=== PATIENT | male | born 1955 | race Caucasian/White ===

== ENCOUNTER 2020-11-14 09:11 | Outpatient (CLI) | payer OTHER, MEDICARE, SELFPAY ==
--- NOTE | ~2020-11-14 | US_ITS ---
aorta preventative scrn DATE: 11/14/2020 11:03 INDICATION: Obesity, hypercholesterolemia, hypertension. TECHNIQUE: Real-time and color flow imaging and Doppler analysis of the abdominal aorta. COMPARISON: None FINDINGS: There is no evidence of abdominal aortic aneurysm. Right common iliac artery measures 1.2 c m proximally. Left proximal common iliac artery measures 1.3 cm. IMPRESSION: No evidence of abdominal aortic aneurysm Reviewed, dictated and finalized at [facility]. Reviewed, dictated and finalized at [facility]. 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
== END 2020-11-14 09:12 | disposition home or self-care (01) ==
LOC: ANHIMG 09:18
PROVIDERS: PCP Internal Medicine; Visit Provider Internal Medicine
DX: Z13.6 Encounter for screening for cardiovascular disorders (principal)
CPT/HCPCS: 76706

== ENCOUNTER 2022-01-10 07:30 | Outpatient (CLI) | payer MEDICARE, OTHER, SELFPAY ==
--- NOTE | 2022-01-10 07:43 | ECHO_ITS ---
Patient Info Name: Isacc Belle Age: 66 years : 1955 Gender: Male Ht: 68 in Wt: 266 lbs BSA: 2.46 m2 HR: 78 bpm Technical Quality: Fair Exam Date: 01/10/2022 7:58 AM Exam Location: [facility] Patient Status: Outpatient Admit Date: 01/10/2022 Staff Ordering Physician: Dannie Zelaya MD Drag Sawyer: Betzaida Ash RDCS Attending Provider: Dannie Zelaya MD Exam Type: CA echo doppler color flow Study Info Indications I10 - Essential (primary) hypertension Complete two-dimensional, color flow and Doppler transthoracic echocardiogram is performed. Summary 1. Complete two-dimensional, color flow and Doppler transthoracic echocardiogram is performed. 2. Left ventricular chamber dimension is normal. 3. Left ventricular systolic function is normal, estimated at 60-65%. 4. There is mildly increased left ventricular wall thickness. 5. The left ventricular diastolic function is grade II diastolic dysfunction. 6. E/e' 7 is not elevated. 7. Left atrial chamber dimension is mildly enlarged. 8. There is trace tricuspid valve regurgitation. 9. No pulmonary hypertension, estimated pulmonary arterial systolic pressure is 31 mmHg. Left Ventricle E/e' 7 is not elevated. Left ventricular chamber dimension is normal. Left ventricular systolic function is normal, estimated at 60-65%. There is mildly increased left ventricular wall thickness. The left ventricular diastolic function is grade II diastolic dysfunction. Right Ventricle Right ventricular chamber dimension is normal. Right ventricular systolic function is normal. Left Atria Left atrial chamber dimension is mildly enlarged. Right Atria Right atrial chamber dimension is normal. Aortic Valve The aortic valve is trileaflet. There is no aortic valve stenosis. There is no aortic valve regurgitation. Pulmonic Valve There is no pulmonic regurgitation. Mitral Valve There is no mitral valve stenosis. There is no mitral valve regurgitation. Tricuspid Valve There is trace tricuspid valve regurgitation. No pulmonary hypertension, estimated pulmonary arterial systolic pressure is 31 mmHg. Pericardium/Pleural There is no pericardial effusion. Inferior Vena Cava Normal inferior vena cava with >50% collapse upon inspiration consistent with normal right atrial pressure, 5 mmHg. Aorta The aortic root size at the sinus of Valsalva is normal. Left Ventricular Outflow Tract Name Value Normal LVOT 2D LVOT Diameter 2.1 cm LVOT Doppler LVOT Peak Gradient 5 mmHg LVOT Mean Gradient 3 mmHg LVOT VTI 27 cm LVOT VTI/AV VTI Ratio 0.9 LVOT Stroke Volume 90 ml LVOT CO 5.7 l/min LVOT CI 2.3 l/min/m2 Pulmonic Valve Name Value Normal RVOT Doppler ---------
--- NOTE | 2022-01-10 07:44 | ECG_ITS ---
Measurements Intervals [place] Rate: 70 P: 51 ND: 180 QRS: 15 QRSD: 100 T: 11 QT: 376 QTc: 408 Interpretive Statements SINUS RHYTHM MINIMAL VOLTAGE CRITERIA FOR LVH, CONSIDER NORMAL VARIANT [MEETS CRITERIA IN ONE OF: R(aVL), S(V1), R(V5), R(V5/V6)+S(V1)] NO PREVIOUS ECG AVAILABLE FOR COMPARISON Electronically Signed On 01-10-2022 17:17:05 CDT by Osvaldo Workman M.D.
== END 2022-01-10 07:31 | disposition home or self-care (01) ==
LOC: ANHCARD 07:31
PROVIDERS: PCP Internal Medicine; Visit Provider Internal Medicine
DX: I10 Essential (primary) hypertension (principal); R06.00 Dyspnea, unspecified
CPT/HCPCS: 93005; 93306

== ENCOUNTER 2023-02-07 07:50 | Outpatient (CLI) | payer MEDICARE, SELFPAY | END 2023-02-07 07:51 | disposition home or self-care (01) | LOC: ANHAUDIO 07:51 | PROVIDERS: PCP Internal Medicine; Visit Provider Otolaryngology | DX: H90.3 Sensorineural hearing loss, bilateral (principal) | CPT/HCPCS: 92557; 92567 ==

== ENCOUNTER 2023-07-10 09:44 | Emergency (ER) | payer MEDICARE, SELFPAY ==
--- NOTE | 2023-07-10 09:49 | ED.SKABFB ---
HPI - Skin/Abscess/Foreign Bdy General Chief complaint: Skin/Abscess/Foreign Body Stated complaint: Rash on arms/legs Time Seen by Provider: 07/10/23 09:55 Source: patient, family, RN notes reviewed and old records reviewed Mode of arrival: ambulatory Limitations: no limitations History of Present Illness HPI narrative: 68 year old male presents to [facility] care with small raised red lesions that are itchy on his bilateral lower legs and a few on bilateral arms, questions if insect bites.. Patient recently returned from [facility] in the [facility] from vacation and was on the beach noted rash on his way home from vacation, no new areas since returning home. Patient reports that he has been applying hydrocortisone ointment and some Benadryl cream without relief or resolution has increased itching. Patient states that he has no rash area on trunk neck or head. MD complaint: rash Onset (ago): day(s) (noted Sunday on plane ride home) Location: LUE, RUE (scant areas on forearms), LLE and RLE Quality: pruritic Treatments prior to arrival: OTC topical medication (Benadryl topical) and corticosteroid (cream/ointment) Related Data Home Medications Medication Instructions Recorded Confirmed ascorbate calcium (vitamin C) 500 500 mg PO BID 11/03/19 07/10/23 mg tablet aspirin 81 mg tablet,delayed 81 mg PO DAILY 11/03/19 07/10/23 release (Adult Low Dose Aspirin) beta carotene 30 mg capsule 30 mg PO DAILY 11/03/19 07/10/23 (Lumitene) fvhyunwf-qxhdfziq-lazdh acid 400 1 tablet PO DAILY 11/03/19 07/10/23 mcg-vit K 20 mcg-lycop 300 mcg tablet (One-A-Day Men's Multivitamin) omega-3 fatty acids 1,000 mg 1,000 mg PO DAILY 11/03/19 07/10/23 capsule (Fish Oil Concentrate) vitamin E 200 unit capsule 200 unit PO DAILY 11/03/19 07/10/23 acetaminophen 650 mg 650 mg PO Q12H 06/07/23 07/10/23 tablet,extended release (Tylenol Arthritis Pain) naproxen sodium 220 mg tablet 220 mg PO BID 06/07/23 07/10/23 Allergies Allergy/AdvReac Type Severity Reaction Status Date / Time No Known Allergies Allergy Verified 07/10/23 09:53 Review of Systems Review of Systems: CONSTITUTIONAL: Denies fever, chills, or sweats. CARDIOVASCULAR: Denies chest pain, palpitations, or edema. RESPIRATORY: Denies cough or dyspnea. SKIN: Reports red raised lesions to bilateral lower legs and some areas on forearms that are itchy MUSCULOSKELETAL: Denies joint pain or myalgia. NEUROLOGIC: Denies headache, numbness, or weakness. All systems reviewed & are unremarkable except as noted in HPI and below PMFSH Past Medical History Medical History (Updated 07/10/23 @ 10:14 by Birdie Bales NP) Dyslipidemia Essential hypertension NICOLE (obstructive sleep apnea) Osteoarthritis Surgical History Surgical History (Updated 07/10/23 @ 10:08 by Birdie Bales NP) History of left knee replacement History of tonsillectomy Family History Family History Father Hypertension Family history of Parkinson's disease Family history of dementia Other Cerebrovascular accident Social History Social History Years smoked: 2 Smoking status: Former smoker Tobacco type: cigarettes Second hand tobacco smoke exposure: Yes Smoking end date: 10/15/70 Alcohol intake: current Alcohol use details: rarely - every other month Substance use: never Lack of Transportation: No Lack of Food: Never True Current Housing: I Have Housing Concerned About Future Housing: No Difficulty Paying Gas/Electric Bills: No Difficulty Paying for Meds: No Currently Unemployed: No Education: High School Diploma/GED Difficulty w/ Childcare or Family Care: No Living arrangements: with family Occupation/Education: retired Gender identity (if verbalized by the patient): Male Comments At time of signature, agree with nursing past
[2023-07-10 09:50] VITALS: BP 142/80; PULSE 65; RESP 16; TEMP 36.6; O2SAT 100
== END 2023-07-10 10:18 | disposition home or self-care (01) ==
PROVIDERS: Emergency Provider Registered Nurse; PCP Nurse Practitioner Family
DX: L30.9 Dermatitis, unspecified (principal); Z87.891 Personal history of nicotine dependence; E78.5 Hyperlipidemia, unspecified; I10 Essential (primary) hypertension; M19.90 Unspecified osteoarthritis, unspecified site; Z96.652 Presence of left artificial knee joint
CPT/HCPCS: 99213; G0463

== ENCOUNTER 2023-07-23 08:32 | Outpatient (CLI) | payer MEDICARE, SELFPAY ==
--- NOTE | 2023-07-23 08:56 | ECHO_ITS ---
Patient Info Name: Isacc Belle Age: 68 years : 1955 Gender: Male Ht: 68 in Wt: 261 lbs BSA: 2.44 m2 HR: 68 bpm BP: 143 / 78 mmHg Technical Quality: Fair Exam Date: 07/23/2023 9:07 AM Exam Location: [facility] Patient Status: Outpatient Admit Date: 07/23/2023 Staff Ordering Physician: Sudha Drew APRN Certified Social Workers In Health Care: Betzaida Ash RDCS Attending Provider: Sudha Drew APRN Referring Physician: Viki FABIAN; Exam Type: CA echo dop color flow w con Study Info Indications I51.89 - Other ill-defined heart diseases Complete two-dimensional, color flow and Doppler transthoracic echocardiogram is performed with contrast to opacify the left ventricle and to improve the deliniation of the left ventricle endocardial borders. Contrast/Agitated Saline Contrast/Ag. Saline: Definity Amount: 5.00 ml Administered By: Betzaida Ash RDCS New IV Access: Antecubital Space and Left Site Condition: No extravasation, Site dressing applied and IV removed Summary 1. Definity contrast administered improved wall motion interpretation. 2. Left ventricular chamber dimension is normal. 3. Left ventricular systolic function is normal, estimated at 60-65%. 4. The left ventricular diastolic function is grade II diastolic dysfunction. 5. E/e' 7 is not elevated. Left Ventricle E/e' 7 is not elevated. Definity contrast administered improved wall motion interpretation. Left ventricular chamber dimension is normal. Left ventricular systolic function is normal, estimated at 60-65%. The left ventricular diastolic function is grade II diastolic dysfunction. Right Ventricle Right ventricular chamber dimension is normal. Right ventricular systolic function is normal. Left Atria Left atrial chamber dimension is normal. Right Atria Right atrial chamber dimension is normal. Aortic Valve The aortic valve is trileaflet. There is no aortic valve stenosis. There is no aortic valve regurgitation. Pulmonic Valve There is no pulmonic regurgitation. Mitral Valve There is no mitral valve stenosis. There is no mitral valve regurgitation. Tricuspid Valve There is no tricuspid valve regurgitation. Pericardium/Pleural There is no pericardial effusion. Inferior Vena Cava Normal inferior vena cava with >50% collapse upon inspiration consistent with normal right atrial pressure, 5 mmHg. Aorta The aortic root size at the sinus of Valsalva is normal. Left Ventricular Outflow Tract Name Value Normal LVOT 2D LVOT Diameter 2.02 cm LVOT Doppler LVOT Peak Gradient 5 mmHg LVOT Mean Gradient 3 mmHg LVOT VTI 28.17 cm LVOT VTI/AV VTI Ratio 1.05 LVOT Stroke Volume 89.96 ml LVOT CO 5.21 l/min LVOT CI 2.14 L/min/m2 Pulmonic Valve Name Value Normal RVOT Doppler
[2023-07-23] MEDS: PERFLUTREN LIPID MICROSPHERES 1.5 ML VIAL DILUTED TO 10 ML TOTAL VOLUME IV PUSH (09:41)
--- NOTE | 2023-07-23 10:22 | IVDEFINITY ---
Prior to administration of IV Definity the patient was educated on the risks and benefits of the imaging enhancing agent including potential adverse side effects. The patient verbalized understanding. Allergies were verified. No exclusion criteria were identified and at least one of the following inclusion criteria were met: 1) physician request, 2) patient technically difficult to image (per the [place] [employer] Echocardi[employer] guidelines of two or more segments not discernable within the apical view), or 3) questionable left ventricular function. ?
== END 2023-07-23 08:33 | disposition home or self-care (01) ==
LOC: ANHCARD 08:33
PROVIDERS: PCP Nurse Practitioner Family; Visit Provider Nurse Practitioner Family
DX: I51.89 Other ill-defined heart diseases (principal)
CPT/HCPCS: C8929; Q9957

== ENCOUNTER 2024-02-11 08:08 | Outpatient (CLI) | payer MEDICARE, SELFPAY ==
--- NOTE | ~2024-02-11 | XR_ITS ---
EXAMINATION: XR barium swallow DATE: 02/11/2024 08:48 INDICATION: Cough, unspecified. TECHNIQUE: The patient drank thick barium, gas-producing crystals, and thin barium. Fluoroscopy of th e hypopharynx and esophagus was performed. Fluoroscopy exposure time was 0.5 minutes. The total numbe r of images was 265. The dose-area product was 2.821 Gy-cm^2. COMPARISON: None. FINDINGS: There is no mass or stricture of the esophagus. Esophageal motility is normal. There is no hiatal hernia. There was no gastroesophageal reflux with provocative maneuvers. IMPRESSION: 1. Normal esophagram. Reviewed, dictated and finalized at [facility]. IMPRESSION: 1. Normal esophagram.
== END 2024-02-11 08:09 | disposition home or self-care (01) ==
PROVIDERS: PCP Nurse Practitioner Family; Visit Provider Nurse Practitioner Family
DX: R05.9 Cough, unspecified (principal)
CPT/HCPCS: 74220

== ENCOUNTER 2024-04-12 13:05 | Emergency (ER) | payer MEDICARE, SELFPAY ==
--- NOTE | ~2024-04-12 | XR_ITS ---
EXAMINATION: XR hand RT min 3V DATE: 04/12/2024 13:28 INDICATION: Laceration to the right hand TECHNIQUE: Posteroanterior, oblique and lateral views of the right hand were obtained. COMPARISON: None. FINDINGS: Bone alignment is normal. No fracture. Polyarticular osteoarthritis, moderate severity at the first c arpometacarpal, third metacarpophalangeal and second and third distal interphalangeal joints and mild at the distal radioulnar, triscaphe and many of the remaining metacarpophalangeal and interphalangea l joints. Laceration along the radial aspect of the second proximal phalanx. No evident radiopaque fo reign bodies. IMPRESSION: 1. No acute osseous abnormality or radiopaque foreign bodies. 2. Mild to moderate polyarticular osteoarthritis. Reviewed, dictated and finalized at location [facility].
[2024-04-12 13:15] VITALS: BP 140/73; PULSE 81; RESP 16; TEMP 37.2; O2SAT 98
[2024-04-12] MEDS: TETANUS,DIPHTHERIA,AC PERTUSSIS ADULT (0.5 ML) BOOSTRIX IM (13:29)
--- NOTE | 2024-04-12 14:12 | ED.WOUNDLAC ---
HPI - Wound/Laceration General Chief Complaint: Wound/Laceration Stated Complaint: R HAND LACERATION Time Seen by Provider: 04/12/24 13:16 Source: patient, family () and RN notes reviewed Mode of arrival: ambulatory Limitations: no limitations History of Present Illness HPI narrative: Patient and present today complaining of a large laceration to the palmar aspect of the right hand at the base of the thumb. Patient was disassembling a swing set when something fell and pinched his hand causing a large laceration. Injury occurred just prior to arrival. Patient denies numbness or tingling. He is not up-to-date on his tetanus vaccine. Related Data Home Medications Medication Instructions Recorded Confirmed ascorbate calcium (vitamin C) 500 500 mg PO BID 11/03/19 04/12/24 mg tablet beta carotene 30 mg capsule 30 mg PO DAILY 11/03/19 04/12/24 (Lumitene) thmzrbmb-iymdgcdg-htquu acid 400 1 tablet PO DAILY 11/03/19 04/12/24 mcg-vit K 20 mcg-lycop 300 mcg tablet (One-A-Day Men's Multivitamin) omega-3 fatty acids 1,000 mg 1,000 mg PO DAILY 11/03/19 04/12/24 capsule (Fish Oil Concentrate) vitamin E 200 unit capsule 200 unit PO DAILY 11/03/19 04/12/24 acetaminophen 650 mg 650 mg PO Q12H 06/07/23 04/12/24 tablet,extended release (Tylenol Arthritis Pain) naproxen sodium 220 mg tablet 220 mg PO BID 06/07/23 04/12/24 aspirin 81 mg tablet,delayed 81 mg PO BID 08/22/23 04/12/24 release (Adult Low Dose Aspirin) Allergies Allergy/AdvReac Type Severity Reaction Status Date / Time No Known Allergies Allergy Verified 04/12/24 13:11 Review of Systems Review of Systems: CONSTITUTIONAL: Denies body aches, fever, chills, or sweats. EYES: Denies visual changes, redness, or discharge. ENT: Denies rhinorrhea, congestion, sore throat, or otalgia. CARDIOVASCULAR: Denies chest pain, palpitations, or edema. RESPIRATORY: Denies cough or dyspnea. GASTROINTESTINAL: Denies abdominal pain, nausea, vomiting, or diarrhea. GENITOURINARY: Denies dysuria or hematuria. SKIN: + right hand laceration MUSCULOSKELETAL: Denies back pain, joint pain, or myalgia. NEUROLOGIC: Denies headache, numbness, tingling, or weakness. PSYCH: Denies depression or anxiety. PMFSH Past Medical History Medical History Dyslipidemia Essential hypertension NICOLE (obstructive sleep apnea) Osteoarthritis Surgical History Surgical History History of left knee replacement History of tonsillectomy Family History Family History Father Hypertension Family history of Parkinson's disease Family history of dementia Other Cerebrovascular accident Social History Social History Years smoked: 2 Smoking status: Former smoker Tobacco type: cigarettes Second hand tobacco smoke exposure: Yes Smoking end date: 10/15/70 Alcohol intake: current Alcohol use details: rarely - every other month Substance use: never Lack of Transportation: No Lack of Food: Never True Current Housing: I Have Housing Concerned About Future Housing: No Difficulty Paying Gas/Electric Bills: No Difficulty Paying for Meds: No Currently Unemployed: No Education: High School Diploma/GED Difficulty w/ Childcare or Family Care: No Living arrangements: with family Occupation/Education: retired Gender identity (if verbalized by the patient): Male Comments At time of signature, I have reviewed and agree with nursing past medical, surgical, social and family history unless otherwise noted. Please see nursing chart for further information. There is no relevant family history pertinent to the presenting complaint Exam Narrative: GENERAL: Well-appearing, well-nourished, and in no acute dis
== END 2024-04-12 14:17 | disposition home or self-care (01) ==
PROVIDERS: Emergency Provider Nurse Practitioner; PCP Nurse Practitioner Family
DX: S61.411A Laceration without foreign body of right hand, initial encounter (principal); X58.XXXA Exposure to other specified factors, initial encounter; Z23 Encounter for immunization; Z87.891 Personal history of nicotine dependence; E78.5 Hyperlipidemia, unspecified; I10 Essential (primary) hypertension; M19.90 Unspecified osteoarthritis, unspecified site; Z96.652 Presence of left artificial knee joint
CPT/HCPCS: 12002; 73130; 90471; 90715; 99213; G0463

== ENCOUNTER → 2024-12-23 15:59 | Outpatient (REF) | payer MEDICARE, SELFPAY ==
--- OUTSIDE RECORDS SUMMARY | 2024-12-23 17:55 | XMS_ITS | Clinical Summary ---
Author Organization [facility] [employer] Address [address] [place] [address] Care Team Providers Care Pocket Setter Lockstitch Name Role Phone Franky Wang MD Primary Care Provider [phone] [facility] [employer],non-owned Affiliates and Associated Physician Practices is amultiple site organization consisting of ambulatory clinics and hospital sitesin [place], [place], [place] and [place]. This disclosure is being madepursuant to the Care Everywhere program and may not contain all information available regarding this patient. Last updated [employer] Allergies No known active allergies Medications * Be aware that medications may not be up to date on this document. Alwaysverify current medications with the patient. Medication Sig Dispensed Refills Start Date End Date Status amLODIPine (Norvasc) 2.5 MG tablet Take 1 (one) tablet by mouth once daily 01/07/2024 Active amoxicillin (Amoxil) 500 MG capsule TAKE 4 CAPSULES BY MOUTH 1 HOUR PRIOR TO DENTAL APPOINTMENT Active lisinopril (Prinivil; Zestril) 40 MG tablet Take 1 (one) tablet by mouth once daily 01/05/2024 Active rosuvastatin (Crestor) 5 MG TABS 01/05/2024 Active Ginkgo Biloba 120 MG Take by mouth 2 times daily Active ascorbic acid (Vitamin C) 250 MG tablet Take 1 (one) tablet by mouth once daily Active fish oil/omega-3 fatty acids (Promega;Cardi-O shira 3) 1000 MG capsule Take 1 (one) capsule by mouth 3 times daily with meals Active vitamin E (Tocopheryl) 100 UNIT capsule Take by mouth once daily Active BETA CAROTENE PO Take by mouth once daily Active multivitamin daily tablet Take 1 (one) tablet by mouth daily with food Active acetaminophen (Tylenol) 500 MG capsule Take 2 (two) capsules by mouth 3 times daily Take for ten days then as needed. 08/06/2024 Active docusate sodium (Colace) 100 MG capsule Take 1 (one) capsule by mouth 2 times daily 08/07/2024 Active polyethylene glycol 3350 (Miralax) 17 g packet Take 17 (seventeen) g by mouth once daily 08/08/2024 Active furosemide (Lasix) 20 MG tablet Take 1 (one) tablet by mouth every morning 08/11/2024 Active potassium chloride ER 10 MEQ tablet Take 1 (one) tablet by mouth once daily 08/11/2024 Active meloxicam (Mobic) 15 MG tablet Take 1 (one) tablet by mouth once daily 30 tablet 5 10/02/2024 Active ASPIRIN PO Active BIOTIN PO Active MELATONIN PO Active LORATADINE PO Active PSEUDOEPHEDRINE HCL PO Active calcium carbonate-vitami n D 600-400 MG-UNIT tablet Take 1 (one) tablet by mouth 2 times daily with morning and evening meal 12/23/2024 Discontinue d(List Clean-Up) Hospital, Clinic, or Other Facility Administered Medication Ordered Dose Route Frequency Start Date End Date Status lidocaine PF (Xylocaine MPF) 1 % injection 3 mLIndications:Tear of left rotator cuff, unspecified tear extent, unspecified whether traumatic 3 mL IX ONCE 12/23/2024 12/23/2024 Ended triamcinolone acetonide (Kenalog-40) injection 40 mgIndications:Tear of left rotator cuff, unspecified tear extent, unspecified whether traumatic 40 mg IX ONCE 12/23/2024 12/23/2024 Ended Active Problems Problem Noted Date Diagnosed Date Primary osteoarthritis of right knee 03/25/2024 Morbid obesity 01/01/2018 S/P total knee replacement, left 01/01/2018 Encounters Date Type Department Care Team Description 12/23/2024 10:10 AM CDT Office Visit [facility] [address] [place] [address], [address] [address] Padma Marsh MD Chronic pain of both shoulders (Primary Dx); Tear of left rotator cuff, unspecified tear extent, unspecified whether traumatic; Nontraumatic complete tear of right rotator cuff 12/23/2024 10:05 AM CDT Ancillary Procedure [facility] - Radiology [address] [place] [address] Padma Marsh MD Chronic pain of both shoulders 12/23/2024 Travel 12/18/2024 2:30 PM BILL CUTTER Office Visit [facility] [address] [address], [address] [place] [address] Kyaw Klein MD 10/02/2024 9:30 AM BILL CUTTER Office Visit [facility] [id number] [place] [address], [facility] [address] [place] [address] Silvano Price PA-C Aftercare following right knee joint replacement surgery (Primary Dx) from Last 3 Months Social History Tobacco Use Types Packs/Day Years Used Date Smoking Tobacco: Never Smokeless Tobacco: Never Tobacco Cessation:Counseling Given: No Alcohol Use Standard Drinks/Week Comments Yes 0 (1 standard drink = 0.6 oz pur e alcohol) 1 AUDIT-C Answer Date Recorded Q1: How often do you have a drink containing alc ohol? Monthly or less 08/06/2024 Q2: How many drinks containi ng alcohol do you have on a typical day when you are drinking? 1 or 2 08/06/2024 Q3: How often do you have si x or more drinks on one occasion? Never 08/06/2024 PHQ-2 Answer Date Recorded Patient Health Questionnaire-2 Score 0 12/16/2024 Hunger Vital Sign Answer Date Recorded Within the past 12 months, y ou worried that your food would run out before you got the money to buy more. Never true 08/07/20 24 Within the past 12 months, t he food you bought just didn't last and you didn't have money to get more. Never true 08/07/2024 Sex and Gender Information Value Date Recorded Sex Assigned at Not on file Gender Identity Not on file Sexual Orientation Not on file Last Filed Vital Signs Vital Sign Reading Time Taken Comments Blood Pressure 147/68 08/07/2024 11:06 AM CDT Pulse 82 08/07/2024 11:06 AM CDT Temperature 37.2 C (99 F) 08/07/2024 11:06 AM CDT Respiratory Rate 18 08/07/2024 11:06 AM CDT Oxygen Saturation 95% 08/07/2024 11:06 AM CDT Inhaled Oxygen Concentration - - Weight 108.9 kg (240 lb) 12/23/2024 10:32 AM CDT Height 172.7 cm (5' 8 ) 12/23/2024 10:32 AM CDT Body Mass Index 36.49 12/23/2024 10:32 AM CDT Plan of Treatment Upcoming Encounters Date Type Department Care Team (Late st Contact Info) Description 12/26/2024 7:40 AM CDT Appointment [facility] [place] [address] [place] [address] [place] [id number] [facility] [address] [place] [address] Health Maintenance Due Date Last Done Comments COLOGUARD (AGES 45-75) - COL ON CA SCREENING 1955 COLON MONITORING 1955 COLONOSCOPY - COLON CA SCREENING 1955 CT COLONOGRAPHY - COLON CA SCREENING 1955 Colorectal Cancer Screening 1955 FIT - COLON CA SCREENING 1955 FLEX SIG - COLON CA SCREENING 1955 HEPATITIS C SCREENING 03/30/1973 DTAP/TDAP/TD VACCINES (1 - Tdap) 1974 PNEUMOCOCCAL VACCINE 50+ (1 of 1 - PCV) 2005 ZOSTER VACCINE (1 of 2) 2005 COVID-19 VACCINE ( - 2023-2 5 season) 2024 MEDICARE AWV CALENDAR YEAR 2024 SCREENING FOR DIABETES 06/12/2027 06/12/2024 Respiratory Syncytial Virus (RSV) Vaccine Pt: or over 60 yrs (1 - 1-dose 75+ series) 2030 INFLUENZA VACCINE Completed 07/19/2024 DEPRESSION SCREENING Completed 12/18/2024, 09/18/2024 HEPATITIS B VACCINE Aged Out No longe r eligible based on patient's age to complete this topic HIB VACCINE Aged Out No longer eligi ble based on patient's age to complete this topic HPV VACCINE Aged Out No longer eligi ble based on patient's age to complete this topic MENINGOCOCCAL (Group B) VACCINE Aged Out No longer eligible b ased on patient's age to complete this topic MENINGOCOCCAL VACCINE Aged Out No kit wilma eligible based on patient's age to complete this topic Medical Devices Implanted Type Area Ship Pilot Device Identifier Shelf Expiration Date Model / Serial / Lot Cmnt Bone Plc R 40gm Grn Implanted:Qty: 1 on 08/06/2024 by Kyaw Klein MD at [facility] Right: Knee [employer] 08/14/2026 [id number] / / [id number] Cmnt Bone Plc R 40gm Grn Implanted:Qty: 1 on 08/06/2024 by Kyaw Klein MD at [facility] Right: Knee [employer] 09/13/2026 [id number] / / [id number] Cmpnt Ptlr Std 31mm 3 Pg Kn Ser A Implanted:Qty: 1 on 08/06/2024 by Kyaw Klein MD at [facility] Right: Knee [employer] 06/10/2029 [id number] / / [id number] Tray Tib 79mm Kn Cocr I Beam Implanted:Qty: 1 on 08/06/2024 by Kyaw Klein MD at [facility] Right: Knee [employer] 06/26/2034 [id number] / / [id number] Cmpnt Fem Kn Rt Cr Cmnt Prm Vngrd Intlk Implanted:Qty: 1 on 08/06/2024 by Kyaw Klein MD at [facility] Right: Knee [employer] 03/12/2034 [id number] / / [id number] Brng [id number] Vngrd Vivacit-E Kn Ant Stab Implanted:Qty: 1 on 08/06/2024 by Kyaw Klein MD at [facility] Right: Knee [employer] 02/17/2029 [id number] / / [id number] Procedures Procedure Name Priority Date/Time Associated Diagnosis Comments XR SHOULDER BILAT 2VW OR MORE Routine 12/23/2024 10:19 AM CDT Chronic pain of both shoulders COMPREHENSIVE METABOLIC PANEL Routine 06/12/2024 2:05 PM CDT Preop testing from Last 3 Months or Most Recently Relevant to Health Maintenance Results * XR Shoulder Bilat 2Vw or More (12/23/2024 10:19 AM CDT) Narrative [facility] [place] [address] - 12/23/2024 10:19 AM CDT Please see progress note in Epic for results. Padma Marsh MD DIAGNOSTIC IMAGING ORDERABLES [facility] [address] * (ABNORMAL) COMPREHENSIVE METABOLIC PANEL (06/12/2024 2:05 PM CDT) Glucose 115(H) 70 - 105 mg/dL 06/12/2024 2:42 PM CDT [facility] Sodium 137 136 - 145 mmol/L 06/12/2024 2:42 PM CDT [facility] Potassium 4.5 3.5 - 5.1 mmol/L 06/12/2024 2:42 PM CDT [facility] Chloride 106 98 - 107 mmol/L 06/12/2024 2:42 PM CDT [facility] CO2 22 22 - 29 mmol/L 06/12/2024 2:42 PM CDT [facility] Calcium 10.0 8.4 - 10.4 mg/dL 06/12/2024 2:42 PM CDT [facility] Anion Gap 9 6 - 16 mmol/L 06/12/2024 2:42 PM CDT [facility] BUN 15 7 - 26 mg/dL 06/12/2024 2:42 PM CDT [facility] Creatinine 1.00 0.72 - 1.25 mg/dL 06/12/2024 2:42 PM CDT [facility] Alkaline Phosphatase 40 40 - 150 U/L 06/12/2024 2:42 PM CDT [facility] ALT 18 0 - 55 U/L 06/12/2024 2:42 PM CDT [facility] AST 20 5 - 34 U/L 06/12/2024 2:42 PM CDT [facility] Protein Total 6.8 6.4 - 8.3 gm/dL 06/12/2024 2:42 PM CDT [facility] Albumin 4.0 3.4 - 5.0 gm/dL 06/12/2024 2:42 PM CDT [facility] Bilirubin Total 0.8 0.2 - 1.2 mg/dL 06/12/2024 2:42 PM CDT [facility] eGFR by CKD-EPI 81(L) >=90 mL/min/1.7 3 m2 06/12/2024 2:42 PM CDT [facility] Blood BLOOD SPECIMEN / Unknown Venipuncture / Unknown 06/12/2024 2:05 PM CDT 06/12/2024 2:21 PM CDT Renata Robin DO LAB - CHEMISTRY [facility] [address] [place] [address] from Last 3 Months or Most Recently Relevant to Health Maintenance Advance Directives * Full Code (Latest Code Status on File) Date Activated Date Inactivated Comments 08/06/2024 2:52 PM 08/07/2024 4:30 PM Care Teams Pocket Setter Lockstitch Relationship Specialty Start Date End Date Franky Wang MD [address] [place] [address] PCP - General Family Medicine 06/12/24
--- OUTSIDE RECORDS SUMMARY | 2024-12-23 17:55 | XMS_ITS | Encounter Summary ---
Author Organization [facility] Address [address] [place] [address] Care Team Providers Care Land Department Head Name Role Phone Franky Wang MD Primary Care Provider [phone] Reason for Referral * Evaluate & Treat (Routine) - Open Specialty Diagnoses / Procedures Referred By Lizzie hobson Referred To Contact Diagnoses Chronic pain of both shoulders Tear of left rotator cuff, unspecified tear extent, unspecified whether traumatic Nontraumatic complete tear [place] [address] [place] [address] Referral ID Status Reason Start Date Expiration Date V isits Requested Visits Authorized [id number] Open Specialty Services Required 12/23/2024 12/23/2025 12 12 Scheduling Instructions Rotator Cuff Tendonitis Rehabilitation Evaluate and Treat, Modalities as indicated Pendulum motion as needed Progression of ROM then strengthening Neuromuscular control of scapulothoracic joint Isometric strengthening Strengthening of cuff ER with arm at side, then progress Theraband tubing for IR and ER Endurance strengthening and functional training * OP/Amb RFL Auth (Routine) - Open Specialty Diagnoses / Procedures Referred By Contnargis t Referred To Contact Diagnoses Tear of left rotator cuff, unspecified tear extent, unspecified whether traumatic Procedures NM DRAIN/INJECT LARGE JOINT/[place] [address] [place] [address] Referral ID Status Reason Start Date Expiration Date Visits Re quested Visits Authorized [id number] Open 12/23/2024 12/23/2025 1 1 * Radiology Services (Routine) - Authorized Specialty Diagnoses / Procedures Referred By Lizzie hobson Referred To Contact MRI Diagnoses Nontraumatic complete tear of right rotator cuff Procedures MRI Shoulder Right Wo Contrast MRI [place] [address] [place] [address] Referral ID Status Reason Start Date Expiration Date V isits Requested Visits Authorized [id number] Authorized 12/23/2024 06/21/2025 1 1 Reason for Visit * Reason Comments Establish Care NDX: Bilateral shoul rich p! Encounter Details Date Type Department Care Team (Late st Contact Info) Description 12/23/2024 10:10 AM CDT Office Visit [facility] [address] [place] [address] [address] [place] [id number] [place] [address] [place] [address] Chronic pain of both shoulders (Primary Dx); Tear of left rotator cuff, unspecified tear extent, unspecified whether traumatic; Nontraumatic complete tear of right rotator cuff Social History Tobacco Use Types Packs/Day Years Used Date Smoking Tobacco: Never Smokeless Tobacco: Never Alcohol Use Standard Drinks/Week Comments Yes 0 [...] on file Sexual Orientation Not on file documented as of this encounter Last Filed Vital Signs Vital Sign Reading Time Taken Comments Blood Pressure - - Pulse - - Temperature - - Respiratory Rate - - Oxygen Saturation - - Inhaled Oxygen Concentration - - Weight 108.9 kg (240 lb) 12/23/2024 10:32 AM CDT Height 172.7 cm (5' 8 ) 12/23/2024 10:32 AM CDT Body Mass Index 36.49 12/23/2024 10:32 AM CDT documented in this encounter Functional Status Functional Status Response Date of Assess ment Is person deaf or have serious hearing difficult y? No 08/06/2024 Is person blind or have serious difficulty seein g? No 08/06/2024 Does person have serious dif ficulty walking/climbing stairs? No 08/06/2024 Does person have difficulty dressing/bathing? No 08/06/2024 Does person have difficulty doing errands alone? No 08/06/2024 Cognitive Status Response Date of Assessm ent Does person have difficulty concentrating/remembering/making decisions? No 08/06/2024 documented as of this encounter Progress Notes * Padma Marsh MD - 12/23/2024 10:38 AM CDT CHIEF COMPLAINT: Bilateral shoulder pain. HISTORY OF PRESENT ILLNESS: Isacc Belle is a 69 year old male who is here for evaluation of the bilateral shoulder(s). This patient has had 3 years of symtoms. Injury or inciting event: None. He noticed pain a few years ago when he was swimming. He has subsequently stopped swimming. He does not do much activity. He is right handed. Both shoulders are painful but the right is worse than the left. This patient has aching in the deltoid region, pain reaching at shoulder level and overhead, weakness with activity at shoulder level , pain reaching behind the back, crepitus, and stiffness. This patient has had nonoperative management including ice and heat, tylenol, modification of activity, and home exercise program. PAST MEDICAL HISTORY: Past Medical History: Diagnosis Date Essential hypertension Obesity Pure hypercholesterolemia Sleep apnea PAST SURGICAL HISTORY: Past Surgical History: Procedure Laterality Date Arthroplasty Right 08/06/2024 ARTHROPLASTY RIGHT TOTAL KNEE KNEE ARTHROPLASTY Right 08/06/2024 Right; ARTHROPLASTY RIGHT TOTAL KNEE Knee Replacement Left Tonsillectomy MEDICATIONS: Current Medications acetaminophen (Tylenol) 500 MG capsule Take 2 (two) capsules by mouth 3 times daily Take for ten days then as needed. amLODIPine (Norvasc) 2.5 MG tablet Take 1 (one) tablet by mouth once daily amoxicillin (Amoxil) 500 MG capsule TAKE 4 CAPSULES BY MOUTH 1 HOUR PRIOR TO DENTAL APPOINTMENT ascorbic acid (Vitamin C) 250 MG tablet Take 1 (one) tablet by mouth once daily ASPIRIN PO BETA CAROTENE PO Take by mouth once daily BIOTIN PO docusate sodium (Colace) 100 MG capsule Take 1 (one) capsule by mouth 2 times daily fish oil/omega-3 fatty acids (Promega;Cardi-Hauula 3) 1000 MG capsule Take 1 (one) capsule by mouth 3 times daily with meals furosemide (Lasix) 20 MG tablet Take 1 (one) tablet by mouth every morning Ginkgo Biloba 120 MG Take by mouth 2 times daily lisinopril (Prinivil; Zestril) 40 MG tablet Take 1 (one) tablet by mouth once daily LORATADINE PO MELATONIN PO meloxicam (Mobic) 15 MG tablet Take 1 (one) tablet by mouth once daily multivitamin daily tablet Take 1 (one) tablet by mouth daily with food polyethylene glycol 3350 (Miralax) 17 g packet Take 17 (seventeen) g by mouth once daily potassium chloride ER 10 MEQ tablet Take 1 (one) tablet by mouth once daily PSEUDOEPHEDRINE HCL PO rosuvastatin (Crestor) 5 MG TABS vitamin E (Tocopheryl) 100 UNIT capsule Take by mouth once daily ALLERGIES: No Known Allergies SOCIAL HISTORY: This patient does not smoke. This patient does not drink alcohol. This patient is right handed. Occupation: Retired REVIEW OF SYSTEMS: Negative with the exception of what has been noted in the HPI. PHYSICAL EXAM: This is a healthy appearing male who is alert and oriented and in no distress. Head is atraumatic and normocephalic. Height is 5 ft 8 in and weight is 240 lb Body mass index is 36.49 kg/m??. Height: 172.7 cm (5' 8 ). Patient has good cervical spine ROM and is able to ambulate with a normal gait. Examination reveals that the bilateral shoulders are symmetric bilaterally. The bilateral shouldersare grossly stable. The left shoulder has subacromial tenderness. Right shoulder has subacromial tenderness. Range of motion is as follows: RANGE OF MOTION: INVOLVED right more painful /UNINVOLVED: Forward Elevation: 150 / 150 Abduction: 150 / 150 External Rotation: 60 / 60 Internal Rotation: BP / BP Shoulder strength is 4/5 for FF, 4/5 for SS and 5/5 for ER. Left shoulder strength is 5-/5. Both shoulders have pain with strength testing. Both shoulders have pain with Neer and Plasencia maneuver. Both shoulders have mild crepitation with range of motion. Special testing: Negative belly press Sane Score (0-100): 12/23/2024 10:00 AM SANE Score Left Shoulder Score 50 Right Shoulder Score 40 12/23/2024 10:00 AM ASES Score ASES (Left) 65 ASES (Right) 60 12/23/2024 10:00 AM Simple Shoulder Test (SST) Score SST Score (Left) 7 SST Score (Right) 5 03/18/2024 09/11/2024 09/25/2024 12/11/2024 12/16/2024 Depression Screening PHQ-2 Score Incomplete Incomplete Incomplete Incomplete Incomplete Patient Health Questionnaire-2 Score 3 1 0 0 0 X-RAY: Three views of the right shoulder(s) obtained 12/23/2024 including AP, axillary lateral and outlet radiographs reveal preserved glenohumeral and preserved acromiohumeral distance with a Type 2 acromion. Small inferior humeral spur less than 3 mm consistent with mild glenohumeral degenerative change. No bony abnormalities are otherwise noted. Three views of the left shoulder(s) obtained 12/23/2024 including AP, axillary lateral and outlet radiographs reveal preserved glenohumeral and preserved acromiohumeral distance with a Type 2 acromion. Small inferior humeral spur less than 3 mm consistent with mild glenohumeral degenerative change. No bony abnormalities are otherwise noted. IMPRESSION: Right shoulder rotator cuff tear. Left shoulder rotator cuff tendinitis. Mild bilateral glenohumeral degenerative change. PLAN: I reviewed the findings with the patient. After discussion, the plan is to proceed with MRI of the right shoulder and injection and therapy on the left shoulder. I will call him with MRI results on the right shoulder. The following Time-Out protocol was followed: Patient name and were confirmed Procedure was confirmed with patient Informed consent was obtained The appropriate site was identified and confirmed Medication order/Injectable was verified Using sterile technique After reviewing the options with the patient, we proceeded with injection of 40 mg triamcinolone and 3 cc local anesthestic under sterile conditions into the left subacromial space from posteriorly. The patient tolerated the procedure well and there were no complications. The risks, benefits, and potential complications of injection were reviewed with the patient. This includes bleeding, infection, injury, glycemic control concerns, and vasovagal response. Informed consent was obtained and the patient agrees to proceed with the procedure as described. Patient education on steroid injection including post injection information and instructions was given in a written format. * Elaine Camargo MA - 12/23/2024 10:03 AM CDT Chief Complaint Patient presents with Establish Care NDX: Bilateral shoulder p! documented in this encounter Plan of Treatment Upcoming Encounters Date Type Department Care Team (Late st Contact Info) Description 12/26/2024 7:40 AM CDT Appointment [facility] Health [place] [address] [place] [address] [place] [address] [facility] [address] [place], [place] [id number] Scheduled Orders Name Type Priority Associated Diagnoses Orde r Schedule MRI Shoulder Right Wo Contrast Imaging Routine Nontraumatic complete tear of right rotator cuff 1 Occurrences starting 12/23/2024 until 12/23/2025 Scheduled Referrals Name Type Priority Associated Diagnoses Orde r Schedule AMB REFERRAL TO PHYSICAL THERAPY Outpatient Referral Routine Chronic pain of both shoulders Tear of left rotator cuff, unspecified tear extent, unspecified whether traumatic Nontraumatic complete tear of right rotator cuff 1 Occurrences starting 12/23/2024 until 12/24/2025 documented as of this encounter Results * XR Shoulder Bilat 2Vw or More (12/23/2024 10:19 AM CDT) Narrative [facility] [address] - 12/23/2024 10:19 AM CDT Please see progress note in Epic for results. Padma Marsh MD DIAGNOSTIC IMAGING ORDERABLES [facility] [address] documented in this encounter Visit Diagnoses Diagnosis Chronic pain of both shoulders- Primary Pain in joint, shoulder region Tear of left rotator cuff, unspecified tear extent, unspecified whether traumatic Nontraumatic complete tear of right rotator cuff Chronic pain of both shoulders Pain in joint, shoulder region documented in this encounter Administered Medications Inactive Administered Medications - up to 3 most recent administrations Medication Order MAR Action Action Date Dose Rate Site lidocaine PF (Xylocaine MPF) 1 % injection 3 mL 3 mL, Intra-articular, ONCE, 1 dose, On Sun12/23/24 at 1115 $ Given 12/23/2024 10:58 AM CDT 3 mL Left Shoulder triamcinolone acetonide (Kenalog-40) injection 40 mg 40 mg, Intra-articular, ONCE, 1 dose, On Sun12/23/24 at 1115, Shake well before using. $ Given 12/23/2024 10:58 AM CDT 40 mg Left Shoulder documented in this encounter Care Teams Land Department Head Relationship Specialty Start Date End Date Franky Wang MD [address] [place] [address] PCP - General Family Medicine 06/12/24 documented as of this encounter
--- OUTSIDE RECORDS SUMMARY | 2024-12-23 17:55 | XMS_ITS | Referral Summary ---
Author Organization [facility] Address [address] [facility] [place] [address] Care Team Providers Care Vamp Creaser Name Role Phone Franky Wang MD Primary Care Provider [phone] Source Comments [facility],non-owned Affiliates and Associated Physician Practices is [facility] consisting of ambulatory clinics and hospital sitesin [place], [place], [place] and [place]. This disclosure is being madepursuant to the Care Everywhere program and may not contain all information available regarding this patient. Last updated 18.[facility] Encounters Date Type Department Care Team Description 12/23/2024 Travel 12/23/2024 10:05 AM CDT Ancillary Procedure [facility] Orthopedics - Radiology [address] [place] [phone] Padma Marsh MD Chronic pain of both shoulders 12/23/2024 10:10 AM CDT Office Visit [facility] [address] [place] [phone] Padma Marsh MD Chronic pain of both shoulders (Primary Dx); Tear of left rotator cuff, unspecified tear extent, unspecified whether traumatic; Nontraumatic complete tear of right rotator cuff 12/18/2024 2:30 PM AGRICULTURAL MECHANIC Office Visit [facility]oped[facility] [address] [place] [phone] Kyaw Klein MD 10/02/2024 9:30 AM AGRICULTURAL MECHANIC Office Visit [facility] [address] [place] [phone] Silvano Price PA-C Aftercare following right knee joint replacement surgery (Primary Dx) from Last 3 Months Allergies No known active allergies Medications * [...] 01/01/2018 S/P total knee replacement, left 01/01/2018 Social History Tobacco Use Types Packs/Day Years [...] Mass Index 36.49 12/23/2024 10:32 AM CDT Functional Status Functional Status Response Date of [...] person have difficulty concentrating/remembering/making decisions? No 08/06/2024 Plan of Treatment Upcoming Encounters Date Type Department Care Team (Late st Contact Info) Description 12/26/2024 7:40 AM CDT Appointment [facility] Imaging Services - [place] [address] [place], [place] [id number] [place] [address] [facility] [address] [place] [address] Medical Devices Implanted Type Area Choral Teacher Device Identifier Shelf Expiration Date Model / Serial / Lot Cmnt Bone Plc R 40gm Grn Implanted:Qty: 1 on 08/06/2024 by Kyaw Klein MD at [facility] Right: Knee [employer] 08/14/2026 [id number] / / [id number] Cmnt Bone Plc R 40gm Grn Implanted:Qty: 1 on 08/06/2024 by Kyaw Klein MD at [facility] Right: Knee [employer] 09/13/2026 [id number] / / [id number] Cmpnt Ptlr Std 31mm 3 Pg Kn Ser A Implanted:Qty: 1 on 08/06/2024 by Kyaw Klein MD at [facility] Right: Knee [employer] 06/10/2029 [id number] / / [id number] Tray Tib 79mm Kn Cocr I Beam Implanted:Qty: 1 on 08/06/2024 by Kyaw Klein MD at [facility] Right: Knee [employer] 06/26/2034 [id number] / / [id number] Cmpnt Fem Kn Rt Cr Cmnt Prm Vngrd Intlk Implanted:Qty: 1 on 08/06/2024 by Kyaw Klein MD at [facility] Right: Knee [employer] 03/12/2034 [id number] / / [id number] Brng 21x03at Vngrd Vivacit-E Kn Ant Stab Implanted:Qty: 1 on 08/06/2024 by Kyaw Klein MD at [facility] Right: Knee [employer] 02/17/2029 [id number] / / [id number] Procedures Procedure Name Priority Date/Time Associated Diagnosis Comments XR SHOULDER BILAT 2VW OR MORE Routine 12/23/2024 10:19 AM CDT Chronic pain of both shoulders COMPREHENSIVE METABOLIC PANEL Routine 06/12/2024 2:05 PM CDT Preop testing from Last 3 Months or Most Recently Relevant to Health Maintenance Results * XR Shoulder Bilat 2Vw or More (12/23/2024 10:19 AM CDT) Narrative [facility] [place] [address] - 12/23/2024 10:19 AM CDT Please see progress note in Epic for results. Padma Marsh MD DIAGNOSTIC IMAGING ORDERABLES [facility] [place] [address] * (ABNORMAL) COMPREHENSIVE METABOLIC PANEL (06/12/2024 2:05 PM CDT) Glucose 115(H) 70 - 105 mg/dL 06/12/2024 2:42 PM CDT [facility] Sodium 137 136 - 145 mmol/L 06/12/2024 2:42 PM CDT [facility] Potassium 4.5 3.5 - 5.1 mmol/L 06/12/2024 2:42 PM CDT [facility] Chloride 106 98 - 107 mmol/L 06/12/2024 2:42 PM CDT [facility] CO2 22 22 - 29 mmol/L 06/12/2024 2:42 PM CDT [facility] Calcium 10.0 8.4 - 10.4 mg/dL 06/12/2024 2:42 PM CDT [facility] Anion Gap 9 6 - 16 mmol/L 06/12/2024 2:42 PM CDT [facility] BUN 15 7 - 26 mg/dL 06/12/2024 2:42 PM CDT [facility] Creatinine 1.00 0.72 - 1.25 mg/dL 06/12/2024 2:42 PM CDT [facility] Alkaline Phosphatase 40 40 - 150 U/L 06/12/2024 2:42 PM CDT [facility] ALT 18 0 - 55 U/L 06/12/2024 2:42 PM CDT [facility] AST 20 5 - 34 U/L 06/12/2024 2:42 PM CDT [facility] Protein Total 6.8 6.4 - 8.3 gm/dL 06/12/2024 2:42 PM CDT [facility] Albumin 4.0 3.4 - 5.0 gm/dL 06/12/2024 2:42 PM CDT [facility] Bilirubin Total 0.8 0.2 - 1.2 mg/dL 06/12/2024 2:42 PM CDT [facility] eGFR by CKD-EPI 81(L) >=90 mL/min/1.7 3 m2 06/12/2024 2:42 PM CDT [facility] Blood BLOOD SPECIMEN / Unknown Venipuncture / Unknown 06/12/2024 2:05 PM CDT 06/12/2024 2:21 PM CDT Renata Robin DO LAB - CHEMISTRY YA BARNETT [facility] [address] [place] [address] from Last 3 Months or Most Recently Relevant to Health Maintenance Advance Directives * Full Code (Latest Code Status on File) Date Activated Date Inactivated Comments 08/06/2024 2:52 PM 08/07/2024 4:30 PM Care Teams Vamp Creaser Relationship Specialty Start Date End Date Franky Wang MD [address] [place] [address] PCP - General Family Medicine 06/12/24
--- OUTSIDE RECORDS SUMMARY | 2024-12-23 17:55 | XMS_ITS | Encounter Summary ---
Author Organization [facility] Address [address] [facility] [place] [address] Care Team Providers Care Informatica Name Role Phone Franky Wang MD Primary Care Provider [phone] Encounter Details Date Type Department Care Team (Late st Contact Info) Description 12/23/2024 10:05 AM CDT Ancillary Procedure [facility] Orthopedics - Radiology [id number] [place] [phone] [place] [address] [facility] [address] [place] [address] Chronic pain of both shoulders Social History Tobacco Use Types Packs/Day Years [...] on file documented as of this encounter Functional Status Functional Status Response [...] No 08/06/2024 documented as of this encounter Plan of Treatment Upcoming Encounters Date Type Department Care Team (Late st Contact Info) Description 12/26/2024 7:40 AM CDT Appointment [facility] Health Imaging Services - [place] [address] [place], [place] [id number] [place] [address] [facility] [address] [place] [address] documented as of this encounter Procedures Procedure Name Priority Date/Time Associated Diagnosis Comments XR SHOULDER BILAT 2VW OR MORE Routine 12/23/2024 10:19 AM CDT Chronic pain of both shoulders documented in this encounter Results * XR Shoulder Bilat 2Vw or More (12/23/2024 10:19 AM CDT) Narrative [facility] [place] [address] - 12/23/2024 10:19 AM CDT Please see progress note in Epic for results. Padma Marsh MD DIAGNOSTIC IMAGING ORDERABLES [facility] [place] [address] documented in this encounter Visit Diagnoses Diagnosis Chronic pain of both shoulders Pain in joint, shoulder region documented in this encounter Care Teams Informatica Relationship Specialty Start Date End Date Franky Wang MD [address] [place] [address] PCP - General Family Medicine 06/12/24 documented as of this encounter
--- OUTSIDE RECORDS SUMMARY | 2024-12-23 17:55 | XMS_ITS | Encounter Summary ---
Author Organization [facility] Address [address] [facility] [place] [address] Care Team Providers Care Inbound Sales Representative Name Role Phone Franky Wang MD Primary Care Provider [phone] Encounter Details Date Type Department Care Team (Latest Contact Info) Description 12/23/2024 Travel Social History Tobacco Use Types Packs/Day Years [...] Info) Description 12/26/2024 7:40 AM CDT Appointment [facility] Health Imaging Services [place] [address] [place] [address] [place] [address] [facility] [address] [place] [address] documented as of this encounter Visit Diagnoses Not on filedocumented in this encounter Care Teams Inbound Sales Representative Relationship Specialty Start Date End Date Franky Wang MD [address] [place] [address] PCP - General Family Medicine 06/12/24 documented as of this encounter
--- OUTSIDE RECORDS SUMMARY | 2024-12-23 17:55 | XMS_ITS | Continuity of Care Document ---
Author Organization [facility] Address [address] [facility] [address] [place] [address] Phone Care Team Providers Care Clinical Services Director Name Role Phone Nicole BEAL, Mathew Unavailable Unavaila ble Medications Medication Instructions Dosage Effective Dates (start - stop) Status Comments naproxen 250 mg tablet take 1 tablet by oral route 2 times every day with food 250 MG - Active Vazalore 81 mg capsule take 1 capsule by oral route every day 81 MG - Active lisinopril 2.5 mg tablet take 1 tablet by oral route every day 2.5 MG - Active Norliqva 1 mg/mL oral solution take 5 milliliter by oral route every day 5 MG - Active Ezallor Sprinkle 5 mg capsule take 1 capsule by oral route every day 5 MG - Active Furoscix 80 mg/10 mL subcutaneous wearable injector kit infuse (80MG) by subcutaneous route via on-body infusor over as directed per package instructions 80 MG - Active potassium 99 MG ORAL TABLET - Active amoxicillin 250 mg/5 mL oral suspension take 5 milliliter by oral route every 8 hours 250 MG - Active Procedures Procedure Date AFTER CATARACT LASER SURGERY OFFICE/OUTPATIENT VISIT, NEW OPSCPY EXTND RTA DRAW UNI/BI CATARACT SURG W/IOL, 1 STAGE OFFICE/OUTPATIENT VISIT, NEW OPHTHALMIC BIOMETRY OPHTHALMIC BIOMETRY Advance Directives Directive Yes / No Effective Date File Name No Information Encounters Encounter Description Practice Location Reason(s) For Visit Diagnoses Date Provider Providers Copied on Encounter [facility], [id number] [place] [address] [address], [place], [place], [id number], [place] tel:[phone] [facility] [place] No Information 3 Krishnasamy Mathew. [address], [address], [place], [place], [id number], [place]. tel:[phone] Referring Provider: Durga Dangelo, [address] [place], [place], [id number]. tel:[phone] OFFICE/OUTPA TIENT VISIT, [facility], [address] [place] [address] [address], [place], [place], [id number], [place] tel:[phone] [facility] Yag Eval OD (chief complaint) Age-related nuclear cataract, left eyeOther secondary cataract, right eyePresence of intraocular lensHypertensi onMacular pucker, leftHistory of vitrectomyVitr eous degeneration, left eyeDermatochal asis of unspecified eye, unspecified eyelid 3 Krishnasamy Mathew. [address], [address], [place], [place], [id number], [place]. tel:[phone] Referring Provider: Irving Siddiqui MD, [address] [facility] [address] [address], [place], [address]. tel:[phone] [facility], [address] [place] [address] [address], [place], [place], [id number], [place] tel:[phone] [facility] [place] No Information 0 Krishnasamy Mathew. [address], [place], [place], [id number], [place]. tel:[phone] Referring Provider: Durga Dangelo, [address] [place], [place], [id number]. tel:[phone] OFFICE/OUTPA TIENT VISIT, [facility], [address] [place] [address] [address], [place], [place], [id number], [place] tel:[phone] [facility] Consult [facility] No Information 0 Nicole Carmona. [address], [place], [place], [id number], [place]. tel:[phone] Referring Provider: Durga Dangelo, [address] [place] [address] [facility], [place], [place], [id number]. tel:[phone] Family History Family Member Type Diagnosis Age At Onset No Information Payers Payer name Insurance type Covered green party ID Monique souza(s) JENNIFER CI [id number] Social History Type Description Quantity Date Captured Comments Sex Male Smoking Status No Information Chief Complaint And Reason For Visit No Information Plan Of Treatment Date Type Action Status No Information History Of Present Illness Encounter Date Complaint History Of Prese nt Illness Yag Eval OD The 67 year old male presents for evaluation of Yag Eval OD in the right eye. It affects OD. Patient was referred by Dr. Antolin CABRERA for a Yag Eval OD. He states his VA is blurry OD and still good OS. Instructions Date Instruction Additional Infor mation Impression/Plan Related to Prese nce of intraocular lens Impression/Plan Related to Hyper tension Impression/Plan Related to Histo ry of vitrectomy Impression/Plan Related to [place] tochalasis of unspecified eye, unspecified eyelid Impression/Plan Related to Vitre ous degeneration, left eye Impression/Plan Related to Macul ar pucker, left Impression/Plan Related to Age-r elated nuclear cataract, left eye Impression/Plan Related to Other secondary cataract, right eye Assessments Type Assessment Date No Information
--- OUTSIDE RECORDS SUMMARY | 2024-12-23 17:55 | XMS_ITS | Patient Health Summary ---
Author Organization [facility] Address [address] [place] [address] Care Team Providers Care Pipeline Controller Name Role Phone Franky Wang MD Primary Care Provider [phone] Note from [facility],non-owned Affiliates and Associated Physician Practices is amultiple site organization consisting of ambulatory clinics and hospital sitesin [place] and [place]. This disclosure is being madepursuant to the Care Everywhere program and may not contain all information available regarding this patient. Last updated 18.[facility] [employer] Allergies No known active allergies Medications * Be aware that medications may not be up to date on this document. Alwaysverify current medications with the patient. * amLODIPine (Norvasc) 2.5 MG tablet(Started 01/07/2024) Take 1 (one) tablet by mouth once daily * amoxicillin (Amoxil) 500 MG capsule TAKE 4 CAPSULES BY MOUTH 1 HOUR PRIOR TO DENTAL APPOINTMENT * lisinopril (Prinivil; Zestril) 40 MG tablet(Started 01/05/2024) Take 1 (one) tablet by mouth once daily * rosuvastatin (Crestor) 5 MG TABS(Started 01/05/2024) * Ginkgo Biloba 120 MG Take by mouth 2 times daily * ascorbic acid (Vitamin C) 250 MG tablet Take 1 (one) tablet by mouth once daily * fish oil/omega-3 fatty acids (Promega;Cardi-Fruitland 3) 1000 MG capsule Take 1 (one) capsule by mouth 3 times daily with meals * vitamin E (Tocopheryl) 100 UNIT capsule Take by mouth once daily * BETA CAROTENE PO Take by mouth once daily * multivitamin daily tablet Take 1 (one) tablet by mouth daily with food * acetaminophen (Tylenol) 500 MG capsule(Started 08/06/2024) Take 2 (two) capsules by mouth 3 times daily Take for ten days then as needed. * docusate sodium (Colace) 100 MG capsule(Started 08/07/2024) Take 1 (one) capsule by mouth 2 times daily * polyethylene glycol 3350 (Miralax) 17 g packet(Started 08/08/2024) Take 17 (seventeen) g by mouth once daily * furosemide (Lasix) 20 MG tablet(Started 08/11/2024) Take 1 (one) tablet by mouth every morning * potassium chloride ER 10 MEQ tablet(Started 08/11/2024) Take 1 (one) tablet by mouth once daily * meloxicam (Mobic) 15 MG tablet(Started 10/02/2024) Take 1 (one) tablet by mouth once daily 5 refills by 10/02/2025 * ASPIRIN PO * BIOTIN PO * MELATONIN PO * LORATADINE PO * PSEUDOEPHEDRINE HCL PO Ended Medications* calcium carbonate-vitamin D 600-400 MG-UNIT tablet (Discontinued) Take 1 (one) tablet by mouth 2 times daily with morning and evening meal Active Problems Problem Noted Date Diagnosed Date [...] Mass Index 36.49 12/23/2024 10:32 AM CDT Medical Devices Implanted Type Area Film Sorter Device Identifier Shelf Expiration Date Model / Serial / Lot Cmnt Bone Plc R 40gm Grn Implanted:Qty: 1 on 08/06/2024 by Kyaw Klein MD at [facility] Right: Knee [employer] 08/14/2026 [id number] / / [id number] Cmnt Bone Plc R 40gm Grn Implanted:Qty: 1 on 08/06/2024 by Kyaw Klein MD at [facility] Right: Knee [employer] 09/13/2026 [id number] / / [id number] Cmpnt Ptlr Std 31mm 3 Pg Kn Ser A Implanted:Qty: 1 on 08/06/2024 by Kyaw Klein MD at [facility] Right: Knee [employer] 06/10/2029 [id number] / / [id number] Tray Tib 79mm Kn Cocr I Beam Implanted:Qty: 1 on 08/06/2024 by Kyaw Klein MD at [facility] Right: Knee [employer] 06/26/2034 [id number] / / [id number] Cmpnt Fem Kn Rt Cr Cmnt Prm Vngrd Intlk Implanted:Qty: 1 on 08/06/2024 by Kyaw Klein MD at [facility] Right: Knee [employer] 03/12/2034 [id number] / / [id number] Brng 91u53eg Vngrd Porsche-Martinez Zepeda Stab Implanted:Qty: 1 on 08/06/2024 by Kyaw Klein MD at [facility] Right: Knee [employer] 02/17/2029 [id number] / / [id number] Procedures * XR SHOULDER BILAT 2VW OR MORE(Performed 12/23/2024) Performed for Chronic pain of both shoulders * XR KNEE RIGHT 3VW(Performed 09/18/2024) Performed for Aftercare following right knee joint replacement surgery * NEURAXIAL BLOCK(Performed 08/06/2024) * PA TOTAL KNEE REPLACEMENT(Performed 08/06/2024) * COMPREHENSIVE METABOLIC PANEL(Performed 06/12/2024) Performed for Preop testing * CBC W AUTO DIFFERENTIAL(Performed 06/12/2024) Performed for Preop testing * EKG 12-LEAD(Performed 06/12/2024) Performed for Preop testing * XR KNEE RIGHT 3VW(Performed 03/24/2024) Performed for Right knee pain, unspecified chronicity Results * XR Shoulder Bilat 2Vw or More (12/23/2024 10:19 AM CDT) Narrative [facility] [address] - 12/23/2024 10:19 AM CDT Please see progress note in Epic for results. Padma Marsh MD DIAGNOSTIC IMAGING ORDERABLES Performing Organization Address City/[facility]/ZIP Co de Phone Number [facility] [address] * XR Knee Right 3Vw (09/18/2024 3:09 PM NIGHT WAREHOUSE SELECTOR) Only the most recent of2 resultswithin the time period is included. Narrative [facility] [address] - 09/18/2024 3:11 PM NIGHT WAREHOUSE SELECTOR Please see progress note in Epic for results. Kyaw Klein MD DIAGNOSTIC IMAGING O RDERABLES [facility] [address] * Neuraxial Block (08/06/2024 11:14 AM CDT) Narrative Charli Goff APRN-CRNA - 08/06/2024 11:14 AM CDT Charli Goff APRN-CRNA 08/06/2024 11:15 AM Neuraxial Block Note Pre-Procedure: Procedure Name: Neuraxial Block Patient Location: OR Indications: surgical anesthesia Pre-Anesthetic Checklist: Patient identified, IV Checked, Risks and benefits discussed, Surgical consent verified, Monitors and equipment, Site examined, Pre-op evaluation done, Time-out performed, Informed consent obtained, Questions answered/anesthesia questions answered and Allergies reviewed Anticoagulation/ Anti-thrombosis status confirmed? Yes Supplemental O2: face mask Monitors: continuous pluse ox and End tidal CO2 Patient Condition: sedated, meaningful contact maintained throughout procedure Patient Sedated? Yes Sedation Type: mild Procedure: Block Type: Spinal Prep: Betadine Sterile Field: mask, cap/hat, sterile established and sterile gloves Approach: midline Skin was localized? Yes Spinal Block: Needle Type: spinal needle Needle Gauge: 22 Needle Length: 90 mm Placement Site: L3-4 Number of Attempts: 1 CSF: free flow, aspiration before injection, aspiration during injection Local anesthetics used? Yes Degree of difficulty: none Procedure Tolerance: tolerated well performed while the patient was sedated no immediate complications Sensory Level: lower level Motor Blockade: Yes Position post procedure: supine Vital Signs: Vital signs monitored and stable throughout. See anesthesia record for details. Start Time: 08/06/2024 10:55 AM End Time: 08/06/2024 10:58 AM Total Time: 3 Staff: Anesthesia Provider: Charli Goff APRN-CRNA - performed the procedure Johnny Ferguson MD GENERAL ANESTHESIA O RDERABLES * (ABNORMAL) CBC W AUTO DIFFERENTIAL (06/12/2024 2:05 PM CDT) WBC 9.5 4.0 - 10.7 x10E9/L 06/12/2024 2:26 PM CDT [facility] RBC Count 3.99(L) 4.30 - 5.80 x10E12/L 06/12/2024 2:26 PM CDT [facility] Hemoglobin 13.3 13.3 - 17.5 g/dL 06/12/2024 2:26 PM CDT [facility] Hematocrit 39.0 38.7 - 51.1 % 06/12/2024 2: PM CDT [facility] MCV 97.7 80.0 - 98.0 fL 06/12/2024 2: PM CDT [facility] MCH 33.3 26.7 - 33.6 pg 06/12/2024 2: PM CDT [facility] MCHC 34.1 31.7 - 36.3 g/dL 06/12/2024 2: PM CDT [facility] RDW-CV 11.9 11.3 - 14.8 % 06/12/2024 2: PM CDT [facility] Platelet Count 267 150 - 420 x10E9/L 06/12/2024 2: PM CDT [facility] MPV 10.9 7.8 - 11.4 fL 06/12/2024 2: PM CDT [facility] Neutrophil % 68.1 41.0 - 74.0 % 06/12/2024 2: PM CDT [facility] Lymphocyte % 24.5 17.0 - 47.0 % 06/12/2024 2: PM CDT [facility] Monocyte % 6.2 3.0 - 11.0 % 06/12/2024 2: PM CDT [facility] Eosinophil % 0.6 0.0 - 7.0 % 06/12/2024 2: PM CDT [facility] Basophil % 0.4 0.0 - 1.6 % 06/12/2024 2: PM CDT [facility] Immature Granulocytes % 0.2 0.0 - 1.0 % 06/12/2024 2: PM CDT [facility] Neutrophil Absolute 6.45 1.60 - 7.50 x10E9/L 06/12/2024 2: PM CDT [facility] Lymphocyte Absolute 2.32 1.00 - 4.40 x10E9/L 06/12/2024 2: PM CDT [facility] Monocyte Absolute 0.59 0.15 - 1.00 x10E9/L 06/12/2024 2: PM CDT [facility] Eosinophil Absolute 0.06 0.00 - 0.60 x10E9/L 06/12/2024 2:26 PM CDT [facility] Basophil Absolute 0.04 0.00 - 0.13 x10E9/L 06/12/2024 2:26 PM CDT [facility] Blood BLOOD SPECIMEN / Unknown Venipuncture / Unknown 06/12/2024 2:05 PM CDT 06/12/2024 2:21 PM CDT Renata Robin DO LAB - HEMATOLOGY ORD ERABLES [facility] [address] [place] [address] * (ABNORMAL) COMPREHENSIVE METABOLIC PANEL (06/12/2024 2:05 PM CDT) Glucose 115(H) 70 - 105 mg/dL 06/12/2024 2:42 PM CDT [facility] Sodium 137 136 - 145 mmol/L 06/12/2024 2:42 PM CDT [facility] Potassium 4.5 3.5 - 5.1 mmol/L 06/12/2024 2:42 PM CDT [facility] Chloride 106 98 - 107 mmol/L 06/12/2024 2:42 PM CDT [facility] CO2 22 22 - 29 mmol/L 06/12/2024 2:42 PM CDT [facility] Calcium 10.0 8.4 - 10.4 mg/dL 06/12/2024 2:42 PM CDT [facility] Anion Gap 9 6 - 16 mmol/L 06/12/2024 2:42 PM CDT [facility] BUN 15 7 - 26 mg/dL 06/12/2024 2:42 PM CDT [facility] Creatinine 1.00 0.72 - 1.25 mg/dL 06/12/2024 2:42 PM CDT [facility] Alkaline Phosphatase 40 40 - 150 U/L 06/12/2024 2:42 PM CDT [facility] ALT 18 0 - 55 U/L 06/12/2024 2:42 PM CDT [facility] AST 20 5 - 34 U/L 06/12/2024 2:42 PM CDT [facility] Protein Total 6.8 6.4 - 8.3 gm/dL 06/12/2024 2:42 PM CDT [facility] Albumin 4.0 3.4 - 5.0 gm/dL 06/12/2024 2:42 PM CDT [facility] Bilirubin Total 0.8 0.2 - 1.2 mg/dL 06/12/2024 2:42 PM CDT [facility] eGFR by CKD-EPI 81(L) >=90 mL/min/1.7 3 m2 06/12/2024 2:42 PM CDT [facility] Blood BLOOD SPECIMEN / Unknown Venipuncture / Unknown 06/12/2024 2:05 PM CDT 06/12/2024 2:21 PM CDT Renata Robin DO LAB - CHEMISTRY YA BARNETT Performing Organization Address City/[facility]/ZIP Co de Phone Number [facility] [address] [place] [address] * EKG 12-LEAD (06/12/2024 1:45 PM CDT) Ventricular Rate 77 BPM [facility] Atrial Rate 77 BPM [facility] P-R Interval 192 ms [facility] QRS Duration ms 94 ms [facility] Q-T Interval ms 364 ms [facility] QTC Calculation (Bezet) 411 ms [facility] Calculated P [place] 41 degrees [facility] Calculated R [place] 29 degrees [facility] Calculated T [place] 23 degrees [facility] Interpretation EKG Normal sinus rhythm Normal ECG No previous ECGs available Confirmed by MONSERRAT BEAL, ALIYA ([id number]) on 06/14/2024 5:41:43 AM [facility] 06/12/2024 1:45 PM CDT 06/14/2024 5:41 AM CDT Renata Robin DO ECG ORDERABLES [facility] Care Teams Pipeline Controller Relationship Specialty Start Date End Date Franky Wang MD [address] [place] [address] PCP - General Family Medicine 06/12/24
== END ==
LOC: ANHLAB 15:59
PROVIDERS: PCP Nurse Practitioner Family; Visit Provider Plastic Surgery
DX: D09.9 Carcinoma in situ, unspecified (principal)
CPT/HCPCS: 88305

== ENCOUNTER 2025-03-26 09:17 | Outpatient (CLI) | payer MEDICARE, SELFPAY ==
--- OUTSIDE RECORDS SUMMARY | 2025-03-26 09:48 | XMS_ITS ---
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 Name Role Phone Felipe Franky Cierra Unavailable [phone] Kyaw Klein Unavailable [phone] Functional Status No Results Mental Status No Results Allergies and Intolerances Name Onset Date Reaction Severity No Known Allergies (Allergy) SunAug 07 17:28:00 EDT 2023 Encounters Program Name Primary Diagnosis Admission Date/Time Dis charge Date/Time Home Care SunAug 07 20:00 :00 EDT 2023Aug 29 18:59:59 EST 2023 Medications Medication Directions Start Date End Date oxyCODONE 10 mg tablet 0.5- 1 TAB TABLET Oral PRN Every 4 Hours PRN MODERATE TO SEVERE PAIN SunAug 08 01:00:00 EDT 2023Aug 29:00:00 EST 2023 furosemide 20 mg tablet 1 TAB TABLET Ora l Every 1 Day SunAug 11 01:00:00 ED2023Aug 29:00:00 EST 2023 potassium chloride ER 10 mEq tablet,extended release(part/cryst) 1 TAB TABLET, EXT RELEASE, PARTICLES/CRYSTALS Oral Every 1 Day SunAug 11 01:00:00 EDT 2023Aug 29:00:00 EST 2023 amLODIPine 2.5 mg tablet 1 TAB TABLET Or al Every 1 Day SunAug 08 01:00:00 ED2023Aug 29:00:00 EST 2023 ascorbic acid (vitamin C) 250 mg tablet 1 TAB TABLET Oral Every 1 Day SunAug 08 01:00:00 ED2023Aug 29 01:00:00 EST 2023 Calcium 600 + D(3) 600 mg-10 mcg (400 unit) tablet 1 TAB TABLET Oral Every 1 Day SunAug 08:00:00 2023Aug 29:: EST 2023 Fish OiL 1,000 mg capsule 1 CAP CAPSULE Oral 3 Times Daily SunAug 08:00:00 2023Aug 29:: EST 2023 ginkgo biloba 120 mg tablet 1 TAB TABLET Oral 2 Times Daily SunAug 08::2023Aug 29:: EST 2023 lisinopriL 40 mg tablet 1 TAB TABLET Ora l Every 1 Day SunAug 08:00:2023Aug 29:00: EST 2023 multivitamin tablet 1 TAB TABLET Oral Ev bret 1 Day SunAug 08::2023Aug 29:: EST 2023 rosuvastatin 5 mg tablet 1 TAB TABLET Or al Every 1 Day SunAug 08:00:00 2023Aug 29::00 EST 2023 vitamin E 100 unit capsule 1 CAP CAPSULE Oral Every 1 Day SunAug 08::00 T 2023Aug 29:00:00 EST 2023 Glucosamine Chondroitin 550 mg-30 mg-1 mg capsule 1 CAP CAPSULE Oral 2 Times Daily SunAug 08::00 2023Aug 29:: EST 2023 acetaminophen 500 mg tablet 2 TAB TABLET Oral Every 8 Hours x 10 DAYS, THEN PRN PAIN SunAug 08:00:00 2023Aug 29:00:00 EST 2023 Aspir-Low 81 mg tablet,delayed release 1 TAB TABLET, DELAYED RELEASE (ENTERIC COATED) Oral 2 Times Daily for 42 Days SunAug 08:00:00 2023Aug 29:00:00 EST 2023 celecoxib 200 mg capsule 1 TAB CAPSULE O ral 2 Times Daily for 42 Days SunAug 08:00:00 2023Aug 29:00:00 EST 2023 docusate sodium 100 mg capsule 1 CAP CAPSULE Oral 2 Times Daily HOLD FOR LOOSE STOOLS SunAug 08:00:00 2023Aug 29:00:00 EST 2023 omeprazole 20 mg capsule,delayed release 1 CAP CAPSULE,DELAYED RELEASE (ENTERIC COATED) Oral Every 1 Day for 42 Days SunAug 08:00:00 2023Aug 29:00:00 EST 2023 Miralax 17 gram oral powder packet 17 GRAM POWDER IN PACKET (EA) Oral PRN Every 1 Day PRN CONSTIPATION SunAug 08 01:00:00 ED2023Aug 29 01:00:00 EST 2023 Claritin 10 mg tablet 1 TAB TABLET Oral Every 1 Day SunAug 08 01:00:00 EDT 2023Aug 29 01:00:00 EST 2023 Problems Active Concerns * Aftercare following joint replacement surgery* Code: * Start Date: SunAug 07 00:00:00 EDT 2023 * End Date: * Text: * Presence of left artificial knee joint* Code: * Start Date: SunJul 15 00:00:00 EDT 2023 * End Date: * Text: * Encounter for removal of sutures* Code: * Start Date: SunAug 08 00:00:00 EDT 2023 * End Date: * Text: * Body mass index [BMI] 37.0-37.9, adult* Code: * Start Date: SunAug 08 00:00:00 EDT 2023 * End Date: * Text: * Obesity, unspecified* Code: * Start Date: SunAug 08 00:00:00 EDT 2023 * End Date: * Text: * Sleep apnea, unspecified* Code: * Start Date: SunAug 08 00:00:00 EDT 2023 * End Date: * Text: * Pure hypercholesterolemia, unspecified* Code: * Start Date: SunAug 08 00:00:00 EDT 2023 * End Date: * Text: * Essential (primary) hypertension* Code: * Start Date: SunAug 08 00:00:00 EDT 2023 * End Date: * Text: * Presence of right artificial knee joint* Code: * Start Date: SunAug 08 00:00:00 EDT 2023 * End Date: * Text: Reason for Referral
--- OUTSIDE RECORDS SUMMARY | 2025-03-26 09:48 | XMS_ITS | Continuity of Care Document ---
Author Organization [facility] Address [address] [place] [address] Phone Care Team Providers Care Histology Aide Name Role Phone Nicole BEAL, Mathew Unavailable Unavaila ble Allergies, Adverse Reactions, Alerts Substance Reaction Status Criticality No Known Allergies Active No Inform ation Medications Medication Instructions Dosage Effective Dates (start [...] 250 MG - Active Procedures Procedure Date GDX Retina OPHTHALMIC BIOMETRY OFFICE/OUTPATIENT VISIT, EST PHARMACY IMPRIMIS AFTER CATARACT LASER SURGERY OFFICE/OUTPATIENT VISIT, NEW [facility] EXTND RTA DRAW UNI/BI CATARACT SURG W/IOL, 1 STAGE OFFICE/OUTPATIENT VISIT, NEW OPHTHALMIC BIOMETRY OPHTHALMIC BIOMETRY Advance Directives Directive Yes / No Effective Date File Name No Information Encounters Encounter Description Practice Location Reason(s) For Visit Diagnoses Date Provider Providers Copied on Encounter OFFICE/OUTPA TIENT VISIT, [facility], [address] [address], [place], [place], [id number], tel:[phone] [facility] blurry vision (chief complaint) Age-related nuclear cataract, left eyeDermatochal asis of unspecified eye, unspecified eyelidPresence of intraocular lensVitreous degeneration, left eyeEpiretinal membrane (ERM), bilateralInsuf ficiency of tear film of both eyes 5 Krkelsey Mathew. [address], [address], [place], [place], [address], [place]. tel:[phone] Referring Provider: [place], [address] . tel:[phone] [facility], [address] [place] [address] [address], [place], [place], [id number], [place] tel:[phone] [facility] No Information 3 Nicole Bermudezl. [address], [address], [place], [place], [address], [place]. tel:[phone] Referring Provider: [place], [address] . tel:[phone] OFFICE/OUTPA TIENT VISIT, [facility], [address] [place] [address], [place], [place], [address], [place] tel:[phone] OPH CONSULT [facility] Yag Eval OD (chief complaint) Age-related nuclear cataract, left eyeOther secondary cataract, right eyePresence of intraocular lensHypertensi onMacular pucker, leftHistory of vitrectomyVitr eous degeneration, left eyeDermatochal asis of unspecified eye, unspecified eyelid 3 Nicole Mathew. [address], [place], [place], [address], [place]. tel:[phone] Referring Provider: Irving Siddiqui MD, [address], [place], [address]. tel:[phone] [facility], [address] [address], [place], [place], [address], tel:[phone] [facility] No Information 0 Nicole Mathew. [address], [place], [place], [address], [place]. tel:[phone] Referring Provider: [place], [address] . tel:[phone] OFFICE/OUTPA TIENT VISIT, [facility], [address] [facility] [address], [place], [place], [address], tel:[phone] Oph Consult [facility] No Information 0 Nicole Mathew. [address], [place], [place], [address], [place]. tel:[phone] Referring Provider: [place], [address] . tel:[phone] Family History Family Member Type Diagnosis Age At Onset Problem No family history of [place] a Problem No family history of Macular degeneration Payers Payer name Insurance type Covered libertarian ID Monique souza(s) AETNA CI [id number] Social History Type Description Quantity Date Captured Comments Alcohol Use Details Unknown Caffeine Use Details Unknown Tobacco Use Status Current non-smoker Smoking Status Never smoker Non-Smoking Tobacco Use Details : No Details Available : No Details Available Sex Male Vital Signs Date / Time: Height Weight BMI Pulse Rate Blood Pressure Temperature Respiratory Rate Body Surface Area Head Circumference Head Circ. Percentile Wt./[place]. Percentile BMI percentile Pulse Ox Inhaled Ox 10:28 AM 68.00 in 108.862 kg (240.00 lbs) 42.3 1 kg/m eter (2) Chief Complaint And Reason For Visit From encounter dated '02/16/2025 07:30'. blurry vision (chief complaint). Description: The 69 year old patient presents for evaluation of blurry vision OU. OD is worse than OS. Pt is struggling with reading small fine print and reading subtitles on the tv OU. States OD is still blurry; both near and distance are an issue. While driving atnight, headlight glare is bothersome. OU are comfortable. Denies any pain or irritation. 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 Siddiqui 2018, limited BCVA ODH/oPCIOL OD Std/D 11/25/22 + YAG OD 12/11/[address] [place] [facility] [place] For Referral Reason For Referral No Information Plan Of Treatment Date Type Action Status Appointment OSCAR MARY BOOKED History Of Present Illness Encounter Date Complaint History Of Prese nt Illness blurry vision The 69 year old patient presents for evaluation of blurry vision OU. OD is worse than OS. Pt is struggling with reading small fine print and reading subtitles on the tv OU. States OD is still blurry; both near and distance are an issue. While driving at night, headlight glare is bothersome. OU are comfortable. Denies any pain or irritation. 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 Siddiqui 2018, limited BCVA ODH/o PCIOL OD Std/D 11/25/22 + YAG OD 12/11/[address] Durga Dangelo [place] [facility] Yag Eval OD The 67 year old male presents for evaluation of Yag Eval OD in the right eye. It affects OD. Patient was referred by Dr. Antolni CABRERA for a Yag Eval OD. He states his VA is blurry OD and still good OS. Functional Status Date Functional Assessmen t No Information Instructions Date Instruction Additional Infor mation Impression/Plan Related to Age-r elated nuclear cataract, left eye Impression/Plan Related to [place] tochalasis of unspecified eye, unspecified eyelid Impression/Plan Related to Prese nce of intraocular lens Impression/Plan Related to Vitre ous degeneration, left eye Impression/Plan Related to Epire tinal membrane (ERM), bilateral Impression/Plan Related to Insuf ficiency of tear film of both eyes Return Related to Prese nce of intraocular lens Impression/Plan Related to Prese nce of intraocular lens Impression/Plan Related to Hyper tension Impression/Plan Related to Histo ry of vitrectomy Impression/Plan Related to [place] tochalasis of unspecified eye, unspecified eyelid Impression/Plan Related to Vitre ous degeneration, left eye Impression/Plan Related to Macul ar pucker, left Impression/Plan Related to Age-r elated nuclear cataract, left eye Impression/Plan Related to Other secondary cataract, right eye Assessments Type Assessment Date assessment Age-related nuclear cataract, le ft eye impression Age-related nuclear cataract, le ft eye: H25.12. assessment Dermatochalasis of unspecified e ye, unspecified eyelid impression Dermatochalasis of u nspecified eye, unspecified eyelid: H02.839. assessment Presence of intraocular lens February impression Presence of intraocular lens: Z9 6.1.11/24/19 assessment Vitreous degeneration, left eye impression Vitreous degeneration, left eye: H43.812. assessment Epiretinal membrane (ERM), bilat eral impression Epiretinal membrane (ERM), bilateral: H35.373. S/P Vitrectomy and peel OD. Mild OS assessment Insufficiency of tear film of dwight th eyes impression Insufficiency of tear film of dwight th eyes: H04.123 Patient Care Teams Name Effective Dates (start - stop) Status Members No Information
--- OUTSIDE RECORDS SUMMARY | 2025-03-26 09:49 | XMS_ITS | Data Portability ---
Author Organization [place] [facility], Main Office Address [address] [place] [address] Assessment Encounter Date Assessment Date Assessment LastModified by Organization Details LastModified Time 06/11/2023 06/11/2023 Patient returns arthritis right knee. Clearly would benefit from knee replacement surgery we discussed this. His BMI is at 40 essentially he needs to lose some weight 1st. He would like an injection is done with 20 mg Kenalog 4 cc 1% lidocaine. For prescription drug management will try prednisone taper for pain and inflammation. He has had a left knee replacement has done quite well and seems to be happy with that. We once again discussed total knee arthroplasty on the right and will proceed proceed once he loses about 20 lb. [email or web address] Not available 06/11/2023 09:44:35 Plan of Treatment Reminders Order Date Submit Date Provider Last Modified By Organization Details Last Modified Time Details Appointments None recorded. Lab None recorded. Referral None recorded. Procedures injection/a spiration joint/bursa (PROC) - in office procedure, administere d by provider 2022 023 [email or web address] In-Office Order, Internal Use Only DO Not Attach Compendium DO Not Attach Compendium, Do Not Delete/merge, [id number] 3 09:39:00 Surgeries None recorded. Imaging XR, knee [email or web address] [facility] Maxi Rodriguez, [facility] [facility] [address], [place], [address], 3 10:06:53 Medication Orders Kenalog 10 mg/mL suspension for injection 2022 023 otto 158 [facility] [address] In [facility], [address] [place], [address], 3 09:41:35 ropivacaine (PF) 5 mg/mL (0.5 %) injection solution 2022 023 otto 158 [facility] [address] In [facility], [address], [place], [address], 3 09:41:35 Patient TargetsNo targets recorded. Patient InstructionsNo instructions recorded. Reason for Referral None Reported. Results Created Date Observation Date Name Description Value Unit Range Abnormal Flag Note LastModifiedBy Organization Detail LastModifiedTime 01/17/20 22 XR, knee, 3 view No observ ation record ed. [id number] [facility] [place] [address], [place], [address], 12/13/2022 13:55:50 10/12/20 22 XR, shoul rich, 2 or more view No observ ation record ed. [id number] [facility] [place] [address], [place], [address], 12/13/2022 13:55:50 06/11/20 23 XR, knee No observ ation record ed. [email or web address] [facility] [place] [address], [place], [address], 06/11/2023 09:44:52 Result Notes None recorded. Problems Name Problem SNOMED Code Status Onset Date Resolution Date Notes Provider Name and Address Organization Details Recorded Time History of left total knee replacemen t 0818955244143 105 Active 2021 Not Available [facility] 3 13:52:59 Radiothera py follow-up 034871606 Active Not Available [facility] 3 13:52:59 Partial thickness rotator cuff tear 930710334 Active 2021 Not Available [facility] 3 13:52:59 Morbid obesity 922346878 Active 2021 Not Available [facility] 3 13:52:59 Knee pain Active Not Available [facility] 3 13:52:59 Osteoarthr itis of right knee joint 9313593024128 00 Active 2021 Not Available [facility] 3 13:52:59 Osteoarthr itis 025365404 Active Not Available [facility] 3 13:53:00 Pain of right knee joint 5035442435549 00 Active 2022 MARCELINO Herman [facility] [employer] [facility] 3 09:20:40 Problem Notes None recorded. Procedures Surgical History Date Name Laterality Status Provider Name and Address Organization Details Recorded Time 3 Ortho - Cortisone Injection completed Osito Oro MD [address] [place] [address], [address], [facility] [employer] [facility] 06/11/2023 09:42:26 total knee replacement completed Naty Amato CNA [employer] [facility] 06/11/2023 09:19:28 Imaging Results None recorded. Procedure Notes None recorded. Medical Equipment None Reported. Allergies No known drug allergies Medications Name Sig Start Date Stop Date Status Note LastModified by Organization Details LastModified Time amoxicillin 500 mg capsule TAKE 4 CAPSULES BY MOUTH 1 HOUR PRIOR TO DENTAL APPOINTME NT active Not Available Not Available No t Available prednisone 10 mg tablet PLEASE SEE ATTACHED FOR DETAILED DIRECTION S active Not Available Not Available No t Available clobetasol 0.05 % topical cream 11/07 completed Not Available Not Available Not Available oxiconazole 1 % topical cream 11/07 completed Not Available Not Available Not Available amlodipine 2.5 mg tablet TAKE 1 TABLET BY MOUTH DAILY active Not Available Not Available No t Available potassium chloride ER 10 mEq tablet,exte nded release TAKE 1 TABLET BY MOUTH DAILY active Not Available Not Available No t Available metronidazo le 500 mg tablet 11/07 completed Not Available Not Available Not Available ciprofloxac in 500 mg tablet 11/07 completed Not Available Not Available Not Available amoxicillin 500 mg tablet TAKE 4 TABLETS BY MOUTH 1 HOUR BEFORE DENTAL APPOINTME NT 06/11 completed Not Available Not Available Not Available prednisone 10 mg tablets in a dose pack Take 1 tab by mouth, 3 times a day for 3 daysTake 1 tab by mouth 2 times a day for 2 daysTake 1 tab by mouth once a day for 1 day 2022 active Not Available Not Available Not Avai lable terbinafine HCl 250 mg tablet 11/07 completed Not Available Not Available Not Available Kenalog 10 mg/mL suspension for injection Take 20 mg by injection route. 2022 active [facility]: [phone] Not Available Not Available Not Available hydrocodone 7.5 mg-acetamin ophen 325 mg tablet 11/07 completed Not Available Not Available Not Available erythromyci n 5 mg/gram (0.5 %) eye ointment 11/07 completed Not Available Not Available Not Available Xylocaine 20 mg/mL (2 %) injection solution Take 80 mg by injection route. 06/11 completed Not Available Not Available Not Available furosemide 20 mg tablet TAKE 1 TABLET BY MOUTH EVERY MORNING active Not Available Not Available No t Available lisinopril 40 mg tablet TAKE 1 TABLET BY MOUTH EVERY DAY active Not Available Not Available No t Available rosuvastati n 5 mg tablet TAKE 1 TABLET BY MOUTH EVERY DAY active Not Available Not Available No t Available Xarelto 10 mg tablet 11/07 completed Not Available Not Available Not Available ropivacaine (PF) 5 mg/mL (0.5 %) injection solution Take 20 mg by injection route. 2022 active [facility] [phone] Not Available Not Available Not Available naftifine 2 % topical cream 11/07 completed Not Available Not Available Not Available Vitals Date Recorded Body mass index (BMI) Body height Body weight Provider Name and Address Organization Details Last Updated DateTime 01/16/2022 40.7 kg/m2 172.72 cm 161465.76 g Not Available [facility] 12/13/2022 13:52:45 Date Recorded Body mass index (BMI) Body height Body weight Provider Name and Address Organization Details Last Updated DateTime 04/18/2022 40 kg/m2 172.72 cm 949854.79 g Not Available [facility] 12/13/2022 13:52:45 Date Recorded Body mass index (BMI) Body height Body weight Provider Name and Address Organization Details Last Updated DateTime 05/22/2022 39.5 kg/m2 172.72 cm 645747.02 g Not Available [facility] 12/13/2022 13:52:45 Date Recorded Body height Body mass index (BMI) Body weight Provider Name and Address Organization Details Last Updated DateTime 06/11/2023 175.26 cm 39.3 kg/m2 094425.57 g Naty Amato CNA [facility] 06/11/2023 09:17:59 Date Recorded Body mass index (BMI) Body height Body weight Provider Name and Address Organization Details Last Updated DateTime 10/12/2022 39.8 kg/m2 172.72 cm 134255.2 g Not Available [facility] 12/13/2022 13:52:45 Social History None recorded. Functional Status Question Answer Note LastModified by Organizat ion Details LastModified Time What is your level of alcohol consumption? Occasional [id number] Information not available 12/13/2022 Mental Status None recorded. Family History Relationship Description Onset Age of this Age Resolved Age Notes LastModified by Organization Details LastModified Time Unspecified Relation Heart disease [id number] Not available 12/13/2022 13:52:11 Unspecified Relation Family history of stroke [email or web address] Not available 06/11 09:02:55 Father Family history of malignant neoplasm [email or web address] Not available 06/11 09:02:56 Father Hypertensive disorder [id number] [id number] Not available 12/13/2022 13:52:12 Medical History Condition Response USE OF NSAIDS Y HYPERTENSION Y ARTHRITIS Y GOUT Y Past Encounters Encounter ID Performer Location Encounter Start Date Encounter Closed Date Diagnosis/Indication Diagnosis SNOMED-CT Code Diagnosis ICD10 Code Diagnosis Note [id number] Osito Oro MD [facility] [place] [address] [place] [address] 01/16/2022 00:00:00 01/16/2022 11:12:07 [id number] Osito Oro MD [facility] [place] [address] [place] [address] 04/18/2022 00:00:00 04/18/2022 14:14:02 [id number] Osito Oro MD [facility] [place] [address] [place] [address] 05/22/2022 00:00:00 05/22/2022 09:31:09 [id number] Osito Oro MD [facility] [place] [address] [place] [address] 10/12/2022 00:00:00 10/12/2022 13:35:09 [id number] Osito Oro MD [facility] [place] [address] [place] [address] 06/11/2023 08:59:09 06/11/2023 10:06:53 Osteoarthritis of right knee joint 7605814764 20195 M17.11 Pain of ri ght knee joint 8538912953 55360 M25.561 History of left total knee replacement 7840253499 390574 Z96.652 Health Concerns Section Related Observation LastModified by Organization Detai ls LastModified Time None Recorded Concern Status LastModified by Organization Details LastModified Time None Recorded Advance Directives Directive None Recorded Payers Insurance Date Sequence Insurance Name Policy Number Policy Turcios Covered Member ID Turcios Member ID Guarantor Name 06/11/2023 1 [place] Isacc Belle [id number] Isacc Belle 06/11/2023 2 [email or web address] - OPEN ACCESS Veronica Murphy [id number] Isacc Belle 06/11/2023 1 [employer] (MEDICARE REPLACEMENT/ ADVANTAGE - PPO) [id number] Isacc Belle [id number] Isacc Belle Notes Date Note Type Note Provider Name and Address Organization Details Recorded Time 06/11/2023 text/html Patient returns arthritis right knee. He has had a total knee on the left and has done quite well however he has [id number] changes in the right knee. He would like to consider a knee replacement however his BMI is about 40. Osito Oro MD [address] [place] [address], [facility] [address], [place], [address], [facility] [employer] [facility] 06/11/2023 09:45:23
--- OUTSIDE RECORDS SUMMARY | 2025-03-26 09:49 | XMS_ITS | Clinical Summary ---
Author Organization [facility] Address [address] [facility] [place] [address] Care Team Providers Care Coin Machine Mechanic Name Role Phone Franky Wang MD Primary Care Provider [phone] [facility],non-owned Affiliates and Associated Physician Practices is amultiple site organization consisting of ambulatory clinics and hospital sitesin [place], [place], [place] and [place]. This disclosure is being madepursuant to the Care Everywhere program and may not contain all information available regarding this patient. Last updated [facility] Allergies No known active allergies Medications * Be aware that medications may not be up to date on this document. Alwaysverify current medications with the patient. amLODIPine (Norvasc) 2.5 MG tablet Take 1 (one) tablet by mouth once daily 4 Active amoxicillin (Amoxil) 500 MG capsule TAKE 4 CAPSULES BY MOUTH 1 HOUR PRIOR TO DENTAL APPOINTMENT Active lisinopril (Prinivil; Zestril) 40 MG tablet Take 1 (one) tablet by mouth once daily 4 Active rosuvastatin (Crestor) 5 MG TABS 4 Active Ginkgo Biloba 120 MG Take by mouth 2 times daily Active ascorbic acid (Vitamin C) 250 MG tablet Take 1 (one) tablet by mouth once daily Active fish oil/omega-3 fatty acids (Promega;Cardi -Tobias 3) 1000 MG capsule Take 1 (one) [...] Take for ten days then as needed. 4 Active docusate sodium (Colace) 100 MG capsule Take 1 (one) capsule by mouth 2 times daily 4 Active polyethylene glycol 3350 (Miralax) 17 g packet Take 17 (seventeen) g by mouth once daily 4 Active furosemide (Lasix) 20 MG tablet Take 1 (one) tablet by mouth every morning 4 Active potassium chloride ER 10 MEQ tablet Take 1 (one) tablet by mouth once daily 4 Active ASPIRIN PO Active BIOTIN PO Active MELATONIN PO Active LORATADINE PO Active PSEUDOEPHEDRIN E HCL PO Active meloxicam (Mobic) 15 MG tablet Take 1 (one) tablet by mouth once daily 30 tablet 2 5 Active meloxicam (Mobic) 15 MG tablet Take 1 (one) tablet by mouth once daily 30 tablet 5 4 03/23/20 25 Discontin ued(Reord er) Active Problems Problem Noted Date Diagnosed Date Primary osteoarthritis of right knee 03/25/2024 Morbid obesity 01/01/2018 S/P total knee replacement, left 01/01/2018 Encounters Date Type Department Care Team Description 03/22/[address] [facility] [address] [place] [address] Silvano Price PA-C Refill Request 01/02/2025 Telephone [facility] [address] [place] [address] Padma Marsh MD Imaging Results 12/26/2024 7:40 AM CDT - 12/26/2024 11:59 PM CDT Hospital Encounter [facility] [place] [address] [place] [address] Padma Marsh MD Discharge Disposition: Home or Self Care from Last 3 Months Social History Tobacco [...] money to buy more. Never true 08/07/20 Within the past 12 months, t he food you bought just didn't last and you didn't have money to get more. 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 Gender Identity Not on file Sexual Orientation [...] 10:32 AM CDT Height 172.7 cm (5' 8) 12/23/2024 10:32 AM CDT Body Mass Index 36.49 12/23/2024 10:32 AM CDT Plan of Treatment Health Maintenance Due Date Last Done Comments [...] complete this topic MENINGOCOCCAL (Group B) VACCINE SHARED DECISION-MAKING Aged Out No longer eligible based on patient's age to complete this topic MENINGOCOCCAL GROUPS A/C/Y/W VACCINE Aged Out No longer eligible b ased on patient's age to complete this topic Medical Devices Implanted Type Area Airport Control Operator Device Identifier Shelf Expiration Date Model / Serial / Lot Cmnt Bone Plc R 40gm Grn Implanted:Qty: 1 on 08/06/2024 by Kyaw Klein MD at [facility] Right: Knee [employer] 08/14/2026 [id number] / / [id number] Cmnt Bone Plc R 40gm Grn Implanted:Qty: 1 on 08/06/2024 by Kyaw Klein MD at [facility] Right: Knee [employer] 09/13/2026 [id number] / / [id number] Cmpnt Ptlr Std 31mm 3 Pg Kn Ser A Implanted:Qty: 1 on 08/06/2024 by Kyaw Klein MD at [facility] Right: Knee [employer] 06/10/2029 [id number] / / [id number] Tray Tib 79mm Kn Cocr I Beam Implanted:Qty: 1 on 08/06/2024 by Kyaw Klein MD at [facility] Right: Knee [employer] 06/26/2034 [id number] / / [id number] Cmpnt Fem Kn Rt Cr Cmnt Prm Vngrd Intlk Implanted:Qty: 1 on 08/06/2024 by Kyaw Klein MD at [facility] Right: Knee [employer] 03/12/2034 [id number] / / [id number] Brng [id number] Vngrd Vivacit-E Kn Ant Stab Implanted:Qty: 1 on 08/06/2024 by Kyaw Klein MD at [facility] Right: Knee [employer] 02/17/2029 [id number] / / [id number] Procedures Procedure Name Priority Date/Time Associated Diagnosis Comments MRI SHOULDER RIGHT WO CONTRAST Routine 12/26/2024 8:31 AM CDT Nontraumatic complete tear of right rotator cuff COMPREHENSIVE METABOLIC PANEL Routine 06/12/2024 2:05 PM CDT Preop testing from Last 3 Months or Most Recently Relevant to Health Maintenance Results * MRI Shoulder Right Wo Contrast (12/26/2024 8:31 AM CDT) Anatomical Region Laterality Modality Upper Extremity Magnetic Resonan ce 12/26/2024 11:4 5 AM CDT Impressions 12/26/2024 11:53 AM CDT IMPRESSION: Small, at least high-grade partial thickness, and probably full-thickness tear of the anterior supraspinatus tendon insertion. No significant tendon retraction or muscle atrophy. Mid subscapularis tendon insertion intrasubstance tear. Mild infraspinatus and moderate intracapsular long head of biceps tendinosis. > Interpreting Provider: Iain Mullen MD on 12/26/2024 11:53 AM Narrative 12/26/2024 11:53 AM CDT PROCEDURE: MRI SHOULDER RIGHT WO CONTRAST DATE/TIME OF EXAM: 12/26/2024 8:31 AM CLINICAL INFORMATION: None relevant/not provided if blank. Indication: M75.121: Complete rotator cuff tear or rupture of right shoulder, not specified as traumatic Additional History: Right shoulder pain COMPARISON: 12/23/2024 shoulder radiographs TECHNIQUE: MRI of the right shoulder was performed without contrast. FINDINGS: ACROMIOCLAVICULAR JOINT: Mild to moderate degenerative changes. GLENOHUMERAL JOINT: Trace joint fluid. No articular cartilage defects are appreciated. No labral pathology is appreciated. ROTATOR CUFF TENDONS: Intrasubstance tear of the mid subscapularis tendon insertion. Small at least high-grade partial thickness tear of the anterior supraspinatus tendon insertion measuring 5 mm in AP dimension. No significant tendon retraction or muscle atrophy. Mild infraspinatus tendinosis. Intact teres minor tendon. BICEPS TENDON: Moderate intracapsular long head of biceps tendinosis. BONE MARROW: No suspicious marrow signal changes are seen. OTHER: Mild subacromial/subdeltoid bursal fluid. Procedure Note Iain Mullen MD - 12/26/2024 PROCEDURE: MRI SHOULDER RIGHT WO CONTRAST DATE/TIME OF EXAM: 12/26/2024 8:31 AM CLINICAL INFORMATION: None relevant/not provided if blank. Indication: M75.121: Complete rotator cuff tear or rupture of right shoulder, not specified as traumatic Additional History: Right shoulder pain COMPARISON: 12/23/2024 shoulder radiographs TECHNIQUE: MRI of the right shoulder was performed without contrast. FINDINGS: ACROMIOCLAVICULAR JOINT: Mild to moderate degenerative changes. GLENOHUMERAL JOINT: Trace joint fluid. No articular cartilage defects are appreciated. No labral pathology is appreciated. ROTATOR CUFF TENDONS: Intrasubstance tear of the mid subscapularis tendon insertion. Small at least high-grade partial thickness tear of the anterior supraspinatus tendon insertion measuring 5 mm in AP dimension. No significant tendon retraction or muscle atrophy. Mild infraspinatus tendinosis. Intactteres minor tendon. BICEPS TENDON: Moderate intracapsular long head of biceps tendinosis. BONE MARROW: No suspicious marrow signal changes are seen. OTHER: Mild subacromial/subdeltoid bursal fluid. IMPRESSION: Small, at least high-grade partial thickness, and probablyfull-thickness tear of the anterior supraspinatus tendon insertion. No significanttendon retraction or muscle atrophy. Mid subscapularis tendon insertion intrasubstance tear. Mild infraspinatus and moderate intracapsular long head of biceps tendinosis. > Interpreting Provider: Iain Mullen MD on 12/26/2024 11:53 AM us Padma Marsh MD MR ORDERABLES Final Resul t * (ABNORMAL) COMPREHENSIVE METABOLIC PANEL (06/12/2024 2:05 PM CDT) Glucose 115(H) 70 - 105 mg/dL 06/12/2024 2:42 PM CDT [facility] Sodium 137 136 - 145 mmol/L 06/12/2024 2:42 PM CDT [facility] Potassium 4.5 3.5 - 5.1 mmol/L 06/12/2024 2:42 PM CDT [facility] Chloride 106 98 - 107 mmol/L 06/12/2024 2:42 PM CDT [facility] CO2 22 22 - 29 mmol/L 06/12/2024 2:42 PM CDT [facility] Calcium 10.0 8.4 - 10.4 mg/dL 06/12/2024 2:42 PM CDT [facility] Anion Gap 9 6 - 16 mmol/L 06/12/2024 2:42 PM CDT [facility] BUN 15 7 - 26 mg/dL 06/12/2024 2:42 PM CDT [facility] Creatinine 1.00 0.72 - 1.25 mg/dL 06/12/2024 2:42 PM CDT [facility] Alkaline Phosphatase 40 40 - 150 U/L 06/12/2024 2:42 PM CDT [facility] ALT 18 0 - 55 U/L 06/12/2024 2:42 PM CDT [facility] AST 20 5 - 34 U/L 06/12/2024 2:42 PM CDT [facility] Protein Total 6.8 6.4 - 8.3 gm/dL 06/12/2024 2:42 PM CDT [facility] Albumin 4.0 3.4 - 5.0 gm/dL 06/12/2024 2:42 PM CDT [facility] Bilirubin Total 0.8 0.2 - 1.2 mg/dL 06/12/2024 2:42 PM CDT [facility] eGFR by CKD-EPI 81(L) >=90 mL/min/1.7 3 m2 06/12/2024 2:42 PM CDT [facility] Blood BLOOD SPECIMEN / Unknown Venipuncture / Unknown 06/12/2024 2:05 PM CDT 06/12/2024 2:21 PM CDT Renata Robin DO LAB - CHEMISTRY ORDERABLES Mel antony Result [facility] [address] [place] [address] from Last 3 Months or Most Recently Relevant to Health Maintenance Insurance [employer] MEDICARE ADV SELF PAY NO INSURANCE Member Subscriber Plan / Payer (Ef fective for All Dates) Name:Oscar Mary Member ID:Not on file Relation to Subscriber:Not on file Name:OSCAR MARY Subscriber ID:Not on file (Home) Address: [place] [address] Payer ID:Not on file Group ID:Not on file Type:Self Pay Address: [place], [place] Advance Directives * Full Code (Latest Code Status on File) Date Activated Date Inactivated Comments 08/06/2024 2:52 PM 08/07/2024 4:30 PM Care Teams Coin Machine Mechanic Relationship Specialty Start Date End Date Franky Wang MD [address] [place] [address] PCP - General Family Medicine 06/12/24
== END 2025-03-26 09:18 | disposition home or self-care (01) ==
LOC: ANHAUDIO 09:17
PROVIDERS: PCP Nurse Practitioner Family; Visit Provider Nurse Practitioner Family
DX: H90.42 Sensorineural hearing loss, unilateral, left ear, with unrestricted hearing on the contralateral side (principal)
CPT/HCPCS: 92557; 92567